=== PATIENT | female | born 1955 | race African-American/Black ===

== ENCOUNTER 2019-05-03 19:45 | Emergency (ER) | payer BC, SELFPAY ==
--- NOTE | 2019-05-03 19:59 | ED.URI ---
HPI - URI/Sore Throat General Chief Complaint: Upper Respiratory Infection Stated Complaint: cough/chest congestion/phglem Time Seen by Provider: 05/03/19 20:17 Source: patient and RN notes reviewed Mode of arrival: ambulatory Limitations: no limitations History of Present Illness HPI Narrative: 64-year-old female with history of COPD, diabetes mellitus presents with concern for shortness of breath, cough, chest discomfort. She reports she has not had to use her albuterol inhaler or her nebulizer for the symptoms. She denies fever, body aches, chills, sweats, nausea, vomiting, diarrhea. MD elicited complaint: cough Related Data Home Medications Medication Instructions Recorded Confirmed albuterol sulfate [Ventolin HFA] INHALATION 05/03/19 atorvastatin 05/03/19 linagliptin [Tradjenta] mg 05/03/19 metformin mg PO 05/03/19 olmesartan-hydrochlorothiazide tablet 05/03/19 Allergies Allergy/AdvReac Type Severity Reaction Status Date / Time No Known Allergies Allergy Unverified 06/29/15 12:55 Review of Systems Review of Systems: Narrative: CONSTITUTIONAL: Denies malaise, chills, sweats, or fever. EYES: Denies visual changes, redness, or discharge. ENT: Denies rhinorrhea, congestion, sinus pain, otalgia and sore throat. CARDIOVASCULAR: Denies chest pain, palpitations, or edema. RESPIRATORY: Reports cough, dyspnea. GASTROINTESTINAL: Denies abdominal pain, nausea, vomiting, diarrhea SKIN: Denies rash or itching. MUSCULOSKELETAL: Denies myalgia. NEUROLOGIC: Denies headache. All systems reviewed & are unremarkable except as noted in HPI and below PMFSH Comments At time of signature, agree with nursing past medical, surgical, social and family history. There is no relevant family history pertinent to the presenting complaint Exam Narrative: Exam Narrative: GENERAL: Well-appearing, well-nourished, and in no acute distress. HEAD: Normocephalic EYES: PERRLA, conjunctivae clear ENT: Nares clear, turbinates erythematous, clear discharge. Mucous membranes moist. TM pearly mike with dull light reflex bilaterally; no tragal tenderness. Oropharynx not erythematous without lesions. Tonsils not enlarged and without exudate, no drooling, no hoarseness, no trismus, uvula midline. NECK: Supple. No lymphadenopathy CHEST: Clear to auscultation, breath sounds equal. No wheezing, rhonchi, rales, or stridor. No respiratory distress, speaks in full sentences. HEART: Regular rate and rhythm. No murmur heard. SKIN: Warm, dry, no rash. NEURO: Alert and oriented x3. PSYCH: Normal mood and affect Course Course Emergency Course: Patient is aware of diagnosis, understands and agrees to treatment plan. Anticipatory guidance given. Patient agrees to follow-up as directed and is aware of reasons to seek care at the emergency department. Portions of this record may have been created with voice recognition software Vital Signs Vital signs: Vital Signs Temperature 98.6 F 05/03/19 20:02 Pulse Rate 89 05/03/19 20:02 Respiratory Rate 16 05/03/19 20:02 Blood Pressure 128/64 05/03/19 20:02 Pulse Oximetry 100 05/03/19 20:02 Temperature 98.6 F 05/03/19 20:02 Pulse Rate 89 05/03/19 20:02 Respiratory Rate 16 05/03/19 20:02 Blood Pressure 128/64 05/03/19 20:02 Pulse Oximetry 100 05/03/19 20:02 Reviewed. MDM - URI/Sore Throat MDM Narrative Medical decision making narrative: Differential diagnosis considered: Strep pharyngitis, allergic rhinitis, upper respiratory tract infection, sinusitis, rhinosinusitis, nasopharyngitis. viral pharyngitis, otitis media, otitis externa, pneumonia, bronchitis, viral cough syndrome, viral syndrome, and influenza. Exam findings show no acute concerns or changes; patient is non-toxic appearing and is in no distress. Patient is appropriate for outpatient treatment and follow-up. Critical Care Time Critical Care Time Critical Care Time: No Discharge Plan Discharge Clinical Impression
[2019-05-03 20:02] VITALS: BP 128/64; PULSE 89; RESP 16; TEMP 37; O2SAT 100
== END 2019-05-03 20:30 | disposition home or self-care (01) ==
PROVIDERS: Emergency Provider Nurse Practitioner
DX: J44.1 Chronic obstructive pulmonary disease with (acute) exacerbation (principal); E78.00 Pure hypercholesterolemia, unspecified; I10 Essential (primary) hypertension; E11.9 Type 2 diabetes mellitus without complications
CPT/HCPCS: 99213; G0463

== ENCOUNTER 2019-12-26 15:50 | Emergency (ER) | payer BC, SELFPAY ==
[2019-12-26 16:09] VITALS: BP 122/63; PULSE 90; RESP 16; TEMP 36.2; O2SAT 97
--- NOTE | 2019-12-26 16:25 | ED.URI ---
HPI - URI/Sore Throat General Chief Complaint: Upper Respiratory Infection Stated Complaint: cold sx History of Present Illness HPI Narrative: This is a 64-year-old black female who presented to urgent care complaining of a productive cough with clear sputum, sneezing, wheezing, chest congestion and rhinorrhea. Patient noted that she went outside with her hair with and as result she developed the symptoms. Patient notes that she has COPD and wants ABX before her COPD worsens. The patient denies SOB, CP, palpitation, extremity numbness, lightheadedness, dizziness, constipation, diarrhea, chills, or fever. Related Data Home Medications Medication Instructions Recorded Confirmed albuterol sulfate [Ventolin HFA] 2 inh INHALATION DIRECTED 05/03/19 12/26/19 atorvastatin 10 mg PO DAILY 05/03/19 12/26/19 linagliptin [Tradjenta] 5 mg PO DAILY 05/03/19 12/26/19 metformin 500 mg PO DIRECTED 05/03/19 12/26/19 olmesartan-hydrochlorothiazide 1 tablet PO DAILY 05/03/19 12/26/19 Allergies Allergy/AdvReac Type Severity Reaction Status Date / Time No Known Allergies Allergy Unverified 12/26/19 15:58 Review of Systems Review of Systems: All systems reviewed & are unremarkable except as noted in HPI and below (10 point system review) Exam Narrative: Exam Narrative: GENERAL: This is a well-nourished, well-developed patient, in no apparent distress. HEAD: normocephalic, atraumatic. EYES: PERRL. Sclera clear/white. Vision is grossly intact. EARS: External ears normal, auditory canals clear and without drainage, TMs normal without perforation. Hearing grossly intact. NOSE: External nose normal with no obvious nasal discharge, nares without redness, no rhinorrhea. THROAT: Mucous membranes moist, posterior pharynx clear. NECK: Neck supple, non-tender without lymphadenopathy, masses or thyromegaly. CARDIOVASCULAR: Regular rate and rhythm without murmurs, gallops, or rubs. RESPIRATORY: Diminished breath sounds GASTROINTESTINAL: Abdomen soft, non-tender, nondistended. Bowel sounds are active. No hepato-splenomegaly, or palpable masses. No guarding. SKIN: warm, intact with no suspicious lesions or rash, good texture and turgor. NEURO: awake, alert, and oriented to person, place and time. There were no obvious focal neurologic abnormalities. Steady gait EXTREMITIES: Normal range of motion. No edema. No calf tenderness. Negative Homans sign bilaterally. BACK: Nontender without deformity or crepitance. No flank tenderness. Course Course Emergency Course: Patient discharged with antibiotics and Tessalon Perles she refused the use of prednisone she knows that prednisone brings her blood sugar up Vital Signs Vital signs: Vital Signs Temperature 97.1 F L 12/26/19 16:09 Pulse Rate 90 12/26/19 16:09 Respiratory Rate 16 12/26/19 16:09 Blood Pressure 122/63 12/26/19 16:09 Pulse Oximetry 97 12/26/19 16:09 Temperature 97.1 F L 12/26/19 16:09 Pulse Rate 90 12/26/19 16:09 Respiratory Rate 16 12/26/19 16:09 Blood Pressure 122/63 12/26/19 16:09 Pulse Oximetry 97 12/26/19 16:09 MDM - URI/Sore Throat Differential Diagnosis Differential diagnosis: Likely upper respiratory infection, sinusitis and bronchitis Discharge Plan Discharge Clinical Impression: Upper respiratory infection Qualifiers: URI type: unspecified URI Qualified Code(s): J06.9 - Acute upper respiratory infection, unspecified Patient Disposition: Home, Self-Care Condition: Stable Instructions: Antibiotic Form, Upper Respiratory Infection (DC) Prescriptions: New azithromycin [Zithromax] 500 mg tablet See Rx Instructions .ROUTE .COMPLEX Qty: 3 RF: 0 benzonatate [Tessalon Perles] 100 mg capsule 100 mg PO BID PRN (Reason: cough) Qty: 30 RF: 0 No Action atorvastatin 10 mg tablet 10 mg PO DAILY RF: 0 albuterol sulfate [Ventolin HFA] 90 mcg/actuation HFA aerosol inhaler 2 inh INHALATION DIRECTED RF: 0 metformin 5
== END 2019-12-26 16:26 | disposition home or self-care (01) ==
PROVIDERS: Emergency Provider Nurse Practitioner
DX: J06.9 Acute upper respiratory infection, unspecified (principal)
CPT/HCPCS: 99213; G0463

== ENCOUNTER 2020-03-13 19:08 | Emergency (ER) | payer BC, SELFPAY ==
--- NOTE | ~2020-03-13 | XR_ITS ---
XR chest 2V DATE: 03/13/2020 19:32 INDICATION: Shortness of breath. History of COPD TECHNIQUE: 2 views COMPARISON: 06/29/2015 PA and lateral chest FINDINGS: Mild cardiomegaly. There is aortic tortuosity. There is widening of the superior mediastinu m and rightward deviation of the nasal septum. This may be due to substernal thyroid goiter but other mediastinal mass lesion is not excluded. Similar changes noted on 06/29/2015 chest radiographic exami nation, favoring chronic process such as substernal thyroid goiter. No pulmonary infiltrate or consolidation, pleural effusion or pulmonary vascular congestion or pneumo thorax. Mild degenerative change of the thoracic and lumbar spine.. IMPRESSION: Widened superior mediastinum with rightward deviation of nasal septum, chronic, present o n 06/29/2015. Most likely explanation a substernal thyroid goiter. CT thorax may be helpful for more d efinitive evaluation as clinically appropriate Reviewed, dictated and finalized at location [facility]. [facility] [employer] IMPRESSION: Widened superior mediastinum with rightward deviation of nasal sept um, chronic, present on 06/29/2015. Most likely explanation a substernal thyroid goiter. CT thorax may be helpful for more definitive evaluation as clinically appropriate
--- NOTE | 2020-03-13 19:19 | ED.URI ---
HPI - URI/Sore Throat General Chief Complaint: Upper Respiratory Infection Stated Complaint: Cough,Wheezing Time Seen by Provider: 03/13/20 19:20 Source: patient and RN notes reviewed Mode of arrival: ambulatory Limitations: no limitations History of Present Illness HPI Narrative: 64-year-old female presents to the [facility] with complaints of shortness of breath. Right lower chest when taking deep breaths has discomfort in the chest wall. Also reports when she is coughing. Has a history of COPD. States that she cannot take prednisone due to her diabetes. States her diabetes have been very well controlled. Used some albuterol and inhaler last night and states that she did feel better. Denies chest pain, abdominal pain. No fevers, nausea, vomiting, diarrhea. Related Data Home Medications Medication Instructions Recorded Confirmed albuterol sulfate [Ventolin HFA] 2 inh INHALATION DIRECTED 05/03/19 03/13/20 atorvastatin 10 mg PO DAILY 05/03/19 03/13/20 linagliptin [Tradjenta] 5 mg PO DAILY 05/03/19 03/13/20 metformin 500 mg PO DIRECTED 05/03/19 03/13/20 olmesartan-hydrochlorothiazide 1 tablet PO DAILY 05/03/19 03/13/20 Allergies Allergy/AdvReac Type Severity Reaction Status Date / Time No Known Allergies Allergy Unverified 12/26/19 15:58 Review of Systems Review of Systems: Narrative: CONSTITUTIONAL: Denies fever, chills, or sweats. EYES: Denies visual changes, redness, or discharge. ENT: Denies rhinorrhea, congestion, sore throat, or otalgia. CARDIOVASCULAR: Denies chest pain, palpitations, or edema. RESPIRATORY: Cough and chest wall pain, right lower lateral. GASTROINTESTINAL: Denies abdominal pain, nausea, vomiting, or diarrhea. GENITOURINARY: Denies dysuria or hematuria. SKIN: Denies rash or itching. MUSCULOSKELETAL: Denies back pain, joint pain, or myalgia. NEUROLOGIC: Denies headache, numbness, or weakness. PSYCHIATRIC: Denies anxiety or depression. All other systems reviewed are negative, except as documented in HPI. [facility] Past Medical History Medical History (Updated 03/14/20 @ 17:29 by Anayeli Sosa) COPD (chronic obstructive pulmonary disease) Diabetes Comments At the time of my signature, I reviewed and agree with the nursing past medical, surgical, social, and family history. There is no relevant family history pertinent to the patient complaint. Exam Narrative: Exam Narrative: GENERAL: This is a well-nourished, well-developed patient, in no apparent distress. Obese HEAD: normocephalic, atraumatic. EYES: PERRL. Sclera clear/white. Vision is grossly intact. EARS: External ears normal, auditory canals clear and without drainage, TMs normal without perforation. Hearing grossly intact. NOSE: External nose normal with no obvious nasal discharge, nares without redness, no rhinorrhea. THROAT: Mucous membranes moist, posterior pharynx clear. NECK: Neck supple, non-tender without lymphadenopathy, masses or thyromegaly. CARDIOVASCULAR: Regular rate and rhythm without murmurs, gallops, or rubs. RESPIRATORY: Clear to auscultation but mildly diminished bilateral lower lobes. No wheezes, rales, or rhonchi. Strong cough noted GASTROINTESTINAL: Abdomen soft, non-tender, nondistended. Bowel sounds are active. . SKIN: warm, intact with no suspicious lesions or rash, good texture and turgor. NEURO: awake, alert, and oriented to person, place and time. There were no obvious focal neurologic abnormalities. EXTREMITIES: No clubbing, cyanosis, or edema. No joint tenderness, effusion, or edema noted. BACK: Nontender without deformity or crepitance. No flank tenderness. Course Vital Signs Vital signs: Vital Signs Temperature 96.8 F L 03/13/20 19:22 Pulse Rate 94 03/13/20 19:22 Respiratory Rate 16 03/13/20 19:22 Blood Pressure 153/69 H 03/13/20 19:22 Pulse Oximetry 97 03/13/20 19:22 Temperature 96.8 F L 03/13/20 19:22 Pulse Rate 94 03/13/20 19:22 Respiratory Rate 16 03/13/20 19:22
[2020-03-13 19:22] VITALS: BP 153/69; PULSE 94; RESP 16; TEMP 36; O2SAT 97
[2020-03-13 19:29] LABS: Glucose Point of Care 111 (65-105)
== END 2020-03-13 20:08 | disposition home or self-care (01) ==
PROVIDERS: Emergency Provider Nurse Practitioner
DX: J20.9 Acute bronchitis, unspecified (principal); J44.9 Chronic obstructive pulmonary disease, unspecified; E11.9 Type 2 diabetes mellitus without complications
CPT/HCPCS: 71046; 82948; 99213; G0463

== ENCOUNTER 2022-01-08 15:56 | Emergency (ER) | payer BC, SELFPAY ==
[2022-01-08 16:24] VITALS: BP 107/62; PULSE 110; RESP 20; TEMP 38.1; O2SAT 98
--- NOTE | 2022-01-08 16:59 | ED.URI ---
HPI - URI/Sore Throat General Chief Complaint: Upper Respiratory Infection Stated Complaint: Vomiting,Chills,Bodyaches Source: patient and RN notes reviewed Mode of arrival: ambulatory Limitations: no limitations History of Present Illness HPI Narrative: 66-year-old female with hx DM, HTN, COPD presented for complaint of headache, body aches, cough, fever/chills. Onset 3 days. Endorses one episode of vomiting today. Decreased appetite. Denies sob,wheezing. Taking Tylenol and ibuprofen for symptoms. MD elicited complaint: cough Related Data Home Medications Medication Instructions Recorded Confirmed albuterol sulfate 90 mcg/actuation 2 inh inhalation DIRECTED 05/03/19 01/08/22 aerosol inhaler (Ventolin HFA) atorvastatin 10 mg tablet 10 mg PO DAILY 05/03/19 01/08/22 linagliptin 5 mg tablet (Tradjenta) 5 mg PO DAILY 05/03/19 01/08/22 metformin 500 mg tablet,extended 500 mg PO DIRECTED 05/03/19 01/08/22 release 24 hr olmesartan 40 1 tablet PO DAILY 05/03/19 01/08/22 mg-hydrochlorothiazide 12.5 mg tablet Allergies Allergy/AdvReac Type Severity Reaction Status Date / Time No Known Allergies Allergy Verified 01/08/22 16:36 Review of Systems Review of Systems: CONSTITUTIONAL: Endorses malaise, chills, sweats, fever EYES: Denies visual changes, redness, or discharge ENT: Denies rhinorrhea, congestion, sinus pain, otalgia, sore throat CARDIOVASCULAR: Denies chest pain, palpitations, edema RESPIRATORY: Reports cough, post nasal drainage. Denies dyspnea GASTROINTESTINAL: Denies abdominal pain, nausea, vomiting, diarrhea SKIN: Denies rash or itching MUSCULOSKELETAL: Endorses myalgia PMFSH Past Medical History Medical History COPD (chronic obstructive pulmonary disease) Diabetes Exam Narrative: GENERAL: Ill-appearing, nontoxic EYES: conjunctivae clear ENT: Mucous membranes moist. CHEST: Clear to auscultation, breath sounds equal. No wheezing, rhonchi, rales, or stridor. No respiratory distress, speaks in full sentences. HEART: Regular rate and rhythm. No murmur heard. SKIN: Warm, dry, no rash. NEURO: Alert and oriented x3. PSYCH: Normal mood and affect Course Course Emergency Course: Patient is aware of diagnosis, understands and agrees to treatment plan. Anticipatory guidance given. Patient agrees to follow-up as directed and is aware of reasons to seek care at the emergency department. Portions of this record may have been created with voice recognition software Level of Care: Express Care Visit Vital Signs Vital signs: Vital Signs Temperature 100.5 F H 01/08/22 16:24 Pulse Rate 110 H 01/08/22 16:24 Respiratory Rate 20 01/08/22 16:24 Blood Pressure 107/62 01/08/22 16:24 Pulse Oximetry 98 01/08/22 16:24 Oxygen Delivery Room Air 01/08/22 16:24 Temperature 100.5 F H 01/08/22 16:24 Pulse Rate 110 H 01/08/22 16:24 Respiratory Rate 20 01/08/22 16:24 Blood Pressure 107/62 01/08/22 16:24 Pulse Oximetry 98 01/08/22 16:24 Oxygen Delivery Room Air 01/08/22 16:24 reviewed MDM - URI/Sore Throat MDM Narrative Medical decision making narrative: Influenza positive. Results reviewed with patient. Advised supportive measures and signs/symptoms to go to the ER. Pt is appropriate for outpt treatment and f/u. Differential Diagnosis Differential diagnosis: Likely upper respiratory infection, sinusitis and viral infection Lab Data Labs: Lab Results 01/08/22 Range/Units 16:18 POC SARS CoV-2 Ag Negative (Negative) Influenza A Screen Positive Reference Range: Negative Influenza B Screen Negative Reference Range: Negative Discharge Plan Discharge Clinical Impression: Influenza Patient Disposition: Home, Self-Care Condition: Stable Instruc
== END 2022-01-08 17:11 | disposition home or self-care (01) ==
PROVIDERS: Emergency Provider Nurse Practitioner Family; PCP Physician Assistant
DX: J10.1 Influenza due to other identified influenza virus with other respiratory manifestations (principal); Z20.822 Contact with and (suspected) exposure to COVID-19; J44.9 Chronic obstructive pulmonary disease, unspecified; E11.9 Type 2 diabetes mellitus without complications; I10 Essential (primary) hypertension; Z79.84 Long term (current) use of oral hypoglycemic drugs
CPT/HCPCS: 87426; 87804; 99213; C9803; G0463

== ENCOUNTER → 2022-01-14 10:26 | Outpatient (CLI) | payer BC, SELFPAY ==
--- NOTE | ~2022-01-14 | XR_ITS ---
XR chest 2V DATE: 01/14/2022 10:45 INDICATION: Productive cough. Flu. Past smoker. TECHNIQUE: 2 views COMPARISON: 03/13/2020 2 view chest 06/29/2015 PA and lateral chest FINDINGS: There is mild discoid atelectasis or scarring at the middle lobe. The left cardiac margin i s not sharply defined, suggesting lingular infiltrate or atelectasis as well. The lungs otherwise appear clear. No pleural effusion or pulmonary vascular congestion or pneumothora x. Widened superior mediastinum with rightward shift of the trachea, likely due to thyroid goiter, prese nt on prior chest radiographs dating back to 06/29/2015. There is aortic calcification and mild tortuosity. IMPRESSION: Mild middle lobe discoid atelectasis or scarring Suggestion of mild lingular infiltrate or atelectasis Stable substernal thyroid goiter Aortic atherosclerosis Reviewed, dictated and finalized at location B. [employer]
== END ==
PROVIDERS: PCP Physician Assistant; Visit Provider Physician Assistant
DX: R05.9 Cough, unspecified (principal); J39.8 Other specified diseases of upper respiratory tract; R91.8 Other nonspecific abnormal finding of lung field; I70.0 Atherosclerosis of aorta
CPT/HCPCS: 71046

== ENCOUNTER 2022-03-19 17:59 | Emergency (ER) | payer BC, SELFPAY ==
[2022-03-19 18:17] VITALS: BP 116/73; PULSE 88; RESP 20; TEMP 36.8; O2SAT 100
--- NOTE | 2022-03-19 18:19 | ED.EXTPRO ---
HPI - Extremity Problem General Chief complaint: Extremity Problem,Nontraumatic Stated complaint: Right Arm Pain Time Seen by Provider: 03/19/22 18:19 Source: patient Mode of arrival: ambulatory Limitations: no limitations History of Present Illness HPI Narrative: 66-year-old female presented for complaint of pain to the right underarm intermittently x1 week. Pain is described as sharp shooting. Pain is brief and resolves on it's own. States it is more tender to touch when the pain is active, but she cannot reproduce the pain. Denies numbness, tingling, decreased ROM, or weakness of the arm. Denies redness, swelling, rash, or tenderness with palpation to the site. Denies associated chest pain, palpitations, shortness of breath, pain radiating down the arm, nausea, vomiting, diarrhea, fevers or chills. Has not taken anything for pain. Right hand dominant. Denies injury. Related Data Home Medications Medication Instructions Recorded Confirmed albuterol sulfate 90 mcg/actuation 2 inh inhalation DIRECTED 05/03/19 03/19/22 aerosol inhaler (Ventolin HFA) atorvastatin 10 mg tablet 10 mg PO DAILY 05/03/19 03/19/22 linagliptin 5 mg tablet (Tradjenta) 5 mg PO DAILY 05/03/19 03/19/22 metformin 500 mg tablet,extended 500 mg PO DIRECTED 05/03/19 03/19/22 release 24 hr olmesartan 40 1 tablet PO DAILY 05/03/19 03/19/22 mg-hydrochlorothiazide 12.5 mg tablet dulaglutide 1.5 mg/0.5 mL 1.5 mg subcut DIRECTED 03/19/22 03/19/22 subcutaneous pen injector (Trulicity) Allergies Allergy/AdvReac Type Severity Reaction Status Date / Time No Known Allergies Allergy Verified 03/19/22 18:01 Review of Systems Review of Systems: CONSTITUTIONAL: Denies body aches, fever, chills EYES: Denies visual changes ENT: Denies rhinorrhea, congestion CARDIOVASCULAR: Denies chest pain, palpitations, or edema. RESPIRATORY: Denies cough or dyspnea. GASTROINTESTINAL: Denies abdominal pain, nausea, vomiting, or diarrhea. SKIN: Denies rash, itching, or wounds. MUSCULOSKELETAL: per HPI NEUROLOGIC: Denies headache, numbness, tingling, or weakness. PSYCH: Denies depression or anxiety. All systems reviewed & are unremarkable except as noted in HPI and below PMFSH Past Medical History Medical History COPD (chronic obstructive pulmonary disease) Diabetes Comments At time of signature, I have reviewed and agree with nursing past medical, surgical, social and family history unless otherwise noted. Please see nursing chart for further information. There is no relevant family history pertinent to the presenting complaint Exam Narrative: GENERAL: Well-appearing CHEST: Speaks in full sentences. No respiratory distress. HEART: Regular rate and rhythm. Normal and equal peripheral pulses. EXTREMITIES: RUE has normal strength and sensation, normal range of motion at shoulder without reproducing the pain. No ecchymosis, No point tenderness. No open wounds or rash; alignment normal, pulse palpable and equal bilaterally, skin warm, dry, pink. Capillary refill less than 3 seconds. SKIN: Warm, dry, no rash. Right axilla soft, no abscess or nodules. Site is nontender. NEURO: Alert and oriented x3. PSYCH: Normal mood and affect Course Course Emergency Course: Patient is aware of diagnosis, understands and agrees to treatment plan. Anticipatory guidance given. Patient agrees to follow-up as directed and is aware of reasons to seek care at the emergency department. Portions of this record may have been created with voice recognition software Level of Care: Express Care Visit Vital Signs Vital signs: Reviewed MDM - Extremity (Nontraumatic) MDM Narrative Medical decision making narrative: Reports intermittent sharp pain to right axilla. PE negative. Advised supportive measures and signs/symptoms to go to the ER. Pt is appropriate for outpt treatment and f/u. Discharge Plan Disch
== END 2022-03-19 18:38 | disposition home or self-care (01) ==
PROVIDERS: Emergency Provider Nurse Practitioner Family; PCP Physician Assistant
DX: M79.621 Pain in right upper arm (principal); J44.9 Chronic obstructive pulmonary disease, unspecified; E11.9 Type 2 diabetes mellitus without complications
CPT/HCPCS: 99212; G0463

== ENCOUNTER 2022-10-24 19:42 | Emergency (ER) | payer BC, SELFPAY ==
[2022-10-24 19:53] VITALS: BP 147/69; PULSE 87; RESP 14; TEMP 36.6; O2SAT 97
--- NOTE | 2022-10-24 20:01 | ED.URI ---
HPI - URI/Sore Throat General Chief Complaint: Upper Respiratory Infection Stated Complaint: Cough Source: patient and RN notes reviewed Mode of arrival: ambulatory Limitations: no limitations History of Present Illness HPI Narrative: 67 y/o female with hx DM presented for c/o cough, runny nose and congestion for 4 days. States cough is moist and nonproductive. Taking Mucinex for symptoms. Took 2 negative covid tests at home. Denies known sick contacts. Denies shortness of breath, wheezing, nausea, vomiting, fevers or chills. MD elicited complaint: cough Related Data Home Medications Medication Instructions Recorded Confirmed albuterol sulfate 90 mcg/actuation 2 inh inhalation DIRECTED 05/03/19 10/24/22 aerosol inhaler (Ventolin HFA) atorvastatin 10 mg tablet 10 mg PO DAILY 05/03/19 10/24/22 linagliptin 5 mg tablet (Tradjenta) 5 mg PO DAILY 05/03/19 10/24/22 metformin 500 mg tablet,extended 500 mg PO DIRECTED 05/03/19 10/24/22 release 24 hr olmesartan 40 1 tablet PO DAILY 05/03/19 10/24/22 mg-hydrochlorothiazide 12.5 mg tablet dulaglutide 1.5 mg/0.5 mL 1.5 mg subcut DIRECTED 03/19/22 10/24/22 subcutaneous pen injector (Trulicity) Allergies Allergy/AdvReac Type Severity Reaction Status Date / Time No Known Allergies Allergy Verified 10/24/22 19:55 Review of Systems Review of Systems: CONSTITUTIONAL: denies malaise, chills, sweats, fever EYES: Denies visual changes, redness, or discharge ENT: Reports rhinorrhea, congestion, deniessinus pain, otalgia, sore throat CARDIOVASCULAR: Denies chest pain, palpitations, edema RESPIRATORY: Reports cough, post nasal drainage. Denies dyspnea GASTROINTESTINAL: Denies abdominal pain, nausea, vomiting, diarrhea SKIN: Denies rash or itching MUSCULOSKELETAL: denies myalgia NEUROLOGIC: Denies headache [facility] Past Medical History Medical History COPD (chronic obstructive pulmonary disease) Diabetes Exam Narrative: GENERAL: well-appearing, nontoxic HEAD: Normocephalic EYES: PERRLA, conjunctivae clear ENT: Mucous membranes moist. Nasal congestion. TMs pearly mike with dull light reflex and clear effusion bilaterally; no tragal tenderness. Oropharynx erythematous without lesions or exudate NECK: Supple. No lymphadenopathy CHEST: Clear to auscultation, breath sounds equal. 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 No wheezing, rhonchi, rales, or stridor. No respiratory distress, speaks in full sentences. HEART: Regular rate and rhythm. No murmur heard. SKIN: Warm, dry, no rash. NEURO: Alert and oriented x3. PSYCH: Normal mood and affect Course Course Emergency Course: Patient is aware of diagnosis, understands and agrees to treatment plan. Anticipatory guidance given. Patient agrees to follow-up as directed and is aware of reasons to seek care at the emergency department. Portions of this record may have been created with voice recognition software Level of Care: Express Care Visit Vital Signs Vital signs: Vital Signs Temperature 98 F 10/24/22 19:53 Pulse Rate 87 10/24/22 19:53 Respiratory Rate 14 10/24/22 19:53 Blood Pressure 147/69 H 10/24/22 19:53 Pulse Oximetry 97 10/24/22 19:53 Oxygen Delivery Room Air 10/24/22 19:53 Temperature 98 F 10/24/22 19:53 Pulse Rate 87 10/24/22 19:53 Respiratory Rate 14 10/24/22 19:53 Blood Pressure 147/69 H 10/24/22 19:53 Pulse Oximetry 97 10/24/22 19:53 Oxygen Delivery Room Air 10/24/22 19:53 reviewed MDM - URI/Sore Throat MDM Narrative Medical decision making narrative: Discussed physical exam findings and covid test. Cannot tolerate steroids due to raising BS. Advised supportive measures and signs/symptoms to go to the ER. Pt is appropriate for outpt treatment and f/u. Differential Diagnosis Differential diagnosis: Likely upper respiratory infection, sinusitis, viral infection and bronchitis Discharge Plan Di
== END 2022-10-24 20:15 | disposition home or self-care (01) ==
PROVIDERS: Emergency Provider Nurse Practitioner Family; PCP Physician Assistant
DX: J06.9 Acute upper respiratory infection, unspecified (principal); Z20.822 Contact with and (suspected) exposure to COVID-19; J44.9 Chronic obstructive pulmonary disease, unspecified; E11.9 Type 2 diabetes mellitus without complications; Z79.84 Long term (current) use of oral hypoglycemic drugs
CPT/HCPCS: 87426; 99213; C9803; G0463

== ENCOUNTER 2023-01-28 19:26 | Emergency (ER) | payer BC, SELFPAY ==
[2023-01-28 19:40] VITALS: BP 133/77; PULSE 85; RESP 16; TEMP 37.3; O2SAT 98
--- NOTE | 2023-01-28 20:00 | ED.URI ---
HPI - URI/Sore Throat General Chief Complaint: Upper Respiratory Infection Stated Complaint: cough,chest hurts,sinus drainage Time Seen by Provider: 01/28/23 20:00 Source: patient and RN notes reviewed Mode of arrival: ambulatory Limitations: no limitations History of Present Illness HPI Narrative: 67-year-old female presents concern for cough, nasal drainage for 1 week. Reports her shortness of breath from her COPD has been getting worse. She reports general malaise. MD elicited complaint: cough and sore throat Related Data Home Medications Medication Instructions Recorded Confirmed albuterol sulfate 90 mcg/actuation 2 inh inhalation DIRECTED 05/03/19 01/28/23 aerosol inhaler (Ventolin HFA) atorvastatin 10 mg tablet 10 mg PO DAILY 05/03/19 01/28/23 linagliptin 5 mg tablet (Tradjenta) 5 mg PO DAILY 05/03/19 01/28/23 metformin 500 mg tablet,extended 500 mg PO DIRECTED 05/03/19 01/28/23 release 24 hr olmesartan 40 1 tablet PO DAILY 05/03/19 01/28/23 mg-hydrochlorothiazide 12.5 mg tablet dulaglutide 1.5 mg/0.5 mL 1.5 mg subcut DIRECTED 03/19/22 01/28/23 subcutaneous pen injector (Trulicity) Allergies Allergy/AdvReac Type Severity Reaction Status Date / Time No Known Allergies Allergy Verified 01/28/23 19:47 Review of Systems Review of Systems: CONSTITUTIONAL: Reports malaise, chills, sweats. Denies fever. EYES: Denies visual changes, redness, or discharge. ENT: Reports rhinorrhea, congestion CARDIOVASCULAR: Denies chest pain, palpitations, or edema. RESPIRATORY: Reports productive cough, exertion dyspnea. GASTROINTESTINAL: Denies abdominal pain, nausea, vomiting, diarrhea SKIN: Denies rash or itching. MUSCULOSKELETAL: Denies myalgia. NEUROLOGIC: Denies headache. All systems reviewed & are unremarkable except as noted in HPI and below PMFSH Past Medical History Medical History COPD (chronic obstructive pulmonary disease) Diabetes Comments At time of signature, agree with nursing past medical, surgical, social and family history. There is no relevant family history pertinent to the presenting complaint Exam Narrative: GENERAL: Well-appearing, well-nourished, and in no acute distress. HEAD: Normocephalic EYES: PERRLA, conjunctivae clear ENT: Nares clear. Mucous membranes moist. TM pearly mike with sharp light reflex bilaterally; no tragal tenderness. Oropharynx not erythematous without lesions. Tonsils not enlarged and without exudate, no drooling, no hoarseness, no trismus, uvula midline. NECK: Supple. No lymphadenopathy CHEST: Scattered rhonchi, otherwise clear to auscultation, breath sounds equal. No wheezing, rales, or stridor. No respiratory distress, speaks in full sentences. HEART: Regular rate and rhythm. No murmur heard. SKIN: Warm, dry, no rash. NEURO: Alert and oriented x3. PSYCH: Normal mood and affect Course Course Emergency Course: Patient is aware of diagnosis, understands and agrees to treatment plan. Anticipatory guidance given. Patient agrees to follow-up as directed and is aware of reasons to seek care at the emergency department. Portions of this record may have been created with voice recognition software Level of Care: Express Care Visit Vital Signs Vital signs: Vital Signs Temperature 99.1 F 01/28/23 19:40 Pulse Rate 85 01/28/23 19:40 Respiratory Rate 16 01/28/23 19:40 Blood Pressure 133/77 01/28/23 19:40 Pulse Oximetry 98 01/28/23 19:40 Oxygen Delivery Room Air 01/28/23 19:40 Temperature 99.1 F 01/28/23 19:40 Pulse Rate 85 01/28/23 19:40 Respiratory Rate 16 01/28/23 19:40 Blood Pressure 133/77 01/28/23 19:40 Pulse Oximetry 98 01/28/23 19:40 Oxygen Delivery Room Air 01/28/23 19:40 Reviewed. MDM - URI/Sore Throat MDM Narrative Medical decision making narrative: Differential diagnosis considered: [place] virus, strep pharyngitis, allerg
== END 2023-01-28 20:07 | disposition home or self-care (01) ==
PROVIDERS: Emergency Provider Nurse Practitioner; PCP Physician Assistant
DX: J06.9 Acute upper respiratory infection, unspecified (principal); J44.9 Chronic obstructive pulmonary disease, unspecified; E11.9 Type 2 diabetes mellitus without complications
CPT/HCPCS: 99213; G0463

== ENCOUNTER 2024-05-01 18:31 | Emergency (ER) | payer BC, SELFPAY ==
[2024-05-01 18:32] VITALS: BP 135/74; PULSE 78; RESP 16; TEMP 36.6; O2SAT 100
--- OUTSIDE RECORDS SUMMARY | 2024-05-01 18:34 | XMS_ITS | Clinical Summary ---
Author Organization [facility] [place] [address] [facility] Address [address] [place] [address] Care Team Providers Care Construction Person Name Role Phone Terri Lopez Primary Care Provider [phone] Gary Deepali Page DO Unavailable [phone] Allergies Active Allergy Reactions Criticality Noted Date Comments Dvxadbdkdv-Bapwxsxm-Zv rmoterol Headache Low 06/07/2023 Prednisone Other (See comments) Low 01/13/2022 Hyperglycemia: ended up in hospital last time it was taken Medications blood glucose diagnostic strip Active lancing device/lancets ([employer] DELICA LANC DEVICE MISC) Active blood-glucose meter [facility] Active dulaglutide (TRULICITY) 0.75 mg/0.5 mL pen injectorIndica tions:type 2 diabetes mellitus Inject 0.5 mL (0.75 mg total) under the skin every 7 days Active acetaminophen (TYLENOL) 500 mg tablet Take 2 tablets (1,000 mg total) by mouth every 6 (six) hours as needed for pain Active ibuprofen 200 mg tab/cap Take 3 tablet/capsule (600 mg total) by mouth every 6 (six) hours as needed for pain Active metFORMIN XR (GLUCOPHAGE XR) 500 mg 24 hr tablet Take 2 tablets (1,000 mg total) by mouth daily with breakfast 180 tablet 1 3 Active albuterol 0.63 mg/3 mL nebulizer solution USE 1 VIAL VIA NEBULIZER EVERY 6 HOURS NEEDED FOR WHEEZING 75 mL 1 3 Active inhalational spacing device (Aerochamber MV) spacer Use to assist with adminstration of Breztri -- Please make sure the spacer is compatable with the Breztri device. 1 each 3 Active albuterol HFA (PROVENTIL HFA,VENTOLIN HFA,PROAIR HFA) 90 mcg/actuation inhaler USE 2 INHALATIONS EVERY 4 HOURS NEEDED FOR WHEEZING 25.5 g 3 4 Active omeprazole (PriLOSEC) 20 mg capsule Take 1 capsule (20 mg total) by mouth daily 30 capsule 4 Active cetirizine (ZyrTEC) 10 mg tablet Take 1 tablet (10 mg total) by mouth daily 30 tablet 11 4 01/04/20 25 Active olmesartan-hyd rochlorothiazi de (BENICAR HCT) 40-12.5 mg per tablet Take 1 tablet by mouth daily 90 tablet 2 5 Active atorvastatin (LIPITOR) 10 mg tablet Take 1 tablet (10 mg total) by mouth daily 90 tablet 2 5 Active fluticasone propionate (FLONASE) 50 mcg/actuation nasal spray Administer 1 spray into each nostril daily 3 each 2 5 Active Active Problems Problem Noted Date Diagnosed Date Annual physical exam 03/17/2024 Assessment & Plan (03/17/2024 7:[address] CAR INSPECTOR): Encouraged healthy lifestyle, good nutrition and exercise. Encouraged Calcium and Vitamin D and weight bearing exercise for bone health. Reviewed immunizations Reviewed age appropirate screenings. Status post complete thyroidectomy 09/18/2023 Overview (09/18/2023): 08/2023 -- Multinodular goiter removed at [facility] Dr. Lemus Started levothyroxine 88mcg PTH >4 post op Assessment & Plan (09/18/2023 12:49 PM CDT): 08/2023 -- Multinodular goiter removed at [facility] Dr. Lemus Started levothyroxine 88mcg PTH >4 post op Endo is monitoring her thyroid Multiple pulmonary nodules 06/15/2023 History of tobacco abuse 03/20/2023 Assessment & Plan (03/20/2023 9:[address] CAR INSPECTOR): Discussed with patient Lung Cancer screening options with the patient. Encouraged LowDose CT Patient is between 55 - 77 yo. Is a current smoker or quit in the last 15 years. Has a 30+pack years smoking history. Is currently without any signs or symptoms of lung cancer. Is willing to consider curative lung surgery if needed. Morbid obesity 11/16/2022 Assessment & Plan (03/08/2024 8:[address] CAR INSPECTOR): Discussed the patient's BMI. The BMI is above average. BMI management plan is completed. BMI Follow-up includes: nutrition counseling, exercise counseling and education provided. Assessment & Plan (09/18/2023 12:49 PM CDT): Discussed the patient's BMI. The BMI is above average. BMI management plan is completed. BMI Follow-up includes: nutrition counseling, exercise counseling and education provided. Assessment & Plan (03/20/2023 8:[address] CAR INSPECTOR): Discussed the patient's BMI. The BMI is above average. BMI management plan is completed. BMI Follow-up includes: nutrition counseling, exercise counseling and education provided. Assessment & Plan (11/16/2022 8:37 AM CDT): Discussed the patient's BMI. The BMI is above average. BMI management plan is completed. BMI Follow-up includes: nutrition counseling, exercise counseling and education provided. BMI 40.0-44.9, adult 11/16/2022 Assessment & Plan (03/08/2024 8:[address] CAR INSPECTOR): Discussed the patient's BMI. The BMI is above average. BMI management plan is completed. BMI Follow-up includes: nutrition counseling, exercise counseling and education provided. Assessment & Plan (09/18/2023 12:49 PM CDT): Discussed the patient's BMI. The BMI is above average. BMI management plan is completed. BMI Follow-up includes: nutrition counseling, exercise counseling and education provided. Assessment & Plan (03/20/2023 8:[address] CAR INSPECTOR): Discussed the patient's BMI. The BMI is above average. BMI management plan is completed. BMI Follow-up includes: nutrition counseling, exercise counseling and education provided. Assessment & Plan (11/16/2022 8:37 AM CDT): Discussed the patient's BMI. The BMI is above average. BMI management plan is completed. BMI Follow-up includes: nutrition counseling, exercise counseling and education provided. Bilateral hand pain 08/01/2022 Assessment & Plan (08/01/2022 1:10 PM CDT): Patient presents with bilateral hand pain. The right hand is more in the palm the left hand is a tingling and numbness that comes and goes. Her story is not super consistent and it definitely isn't a consistent distribution. She does admit seems to happen mostly at night. Encouraged cock-up splints bilaterally and monitor closely. If she has increased her persistent symptoms she is to follow-up for further evaluation History of 2019 novel coronavirus disease (COVID -19) 04/16/2021 Overview (04/16/2021): 02/2021 Acute pain of right knee 10/25/2020 Assessment & Plan (10/25/2020 10:42 AM CDT): Check xrays. Suspect arthritis. Nsaids otc prn May consider Ortho referral as not interested in PT. Vitamin D deficiency 10/14/2020 Assessment & Plan (03/17/2024 7:[address] CAR INSPECTOR): Supplement Assessment & Plan (09/18/2023 12:49 PM CDT): Supplement Assessment & Plan (03/20/2023 9:[address] CAR INSPECTOR): Supplement Assessment & Plan (11/16/2022 7:19 PM CDT): Supplement vitamin-D Assessment & Plan (08/17/2021 8:58 AM CDT): Supplement ARLYN (obstructive sleep apnea) 08/15/2020 Assessment & Plan (03/17/2024 7:[address] CAR INSPECTOR): Patient refuses to use the CPAP. Reviewed risk of untreated and undertreated ARLYN and encouraged to use. She states she elevates the head of the bed thinks it does help. Offered referral to Dr. Coker's office but she declined due to cost of medical care at this point. Advised that is always available for referral Assessment & Plan (09/18/2023 12:49 PM CDT): Not using CPA She did raise the head of her bed. Reviewed with her the long-term sequelae of untreated or undertreated ARLYN. May call at any time for assistance Assessment & Plan (03/20/2023 9:[address] CAR INSPECTOR): Patient has known ARLYN. Has CPAP but is choosing not to use as she feels like she is suffocating or being smothered with it. Stressed importance of following up with pulmonology to discuss her COPD to see if we can get her breathing better so she can get on the CPAP to avoid long-term sequela that can occur for untreated or undertreated ARLYN. Assessment & Plan (11/16/2022 7:19 PM CDT): Using CPAP faithfully. Continue. Assessment & Plan (08/17/2021 8:57 AM CDT): Discussed at length importance of using her CPAP with her diagnosis of sleep apnea. Reviewed the risks of undertreated CPAP the long-term effects. Encouraged her to get in with Dr. Cannon for follow-up as it is been 2019 since she was last seen Assessment & Plan (08/15/2020 8:46 PM CDT): Stressed importance of using her CPAP every night to avoid fpc sequela. Encouraged to keep followup with sleep COPD (chronic obstructive pulmonary disease) 02/2020 Assessment & Plan (03/17/2024 7:[address] CAR INSPECTOR): Continue per Dr. Castro. Currently on albuterol p.r.n.. Did not tolerate the Breztri Has follow-up with him to discuss further options. Will await his recommendations Assessment & Plan (09/18/2023 12:23 PM CDT): Encouraged to follow up with Dr. Castro. She is breathing better with the removal of the compressive mass over her thyroid but she has been a long-time smoker and so has COPD. Did not tolerate the breasts tree. Currently only using albuterol. Would benefit from further evaluation Assessment & Plan (03/20/2023 9:[address] CAR INSPECTOR): Patient has COPD. She has been resistant to medication. Trialed breasts treat with albuterol and she states it irritates her throat so she is unable to tolerate it. She has a chronic cough with lots of sputum production. Has had multiple exacerbations of her COPD in the last year. Strongly encouraged referral to Pulmonary and she is willing to accept that today. I have been encouraging imaging with low-dose CT and she is willing to accept this order also. Assessment & Plan (08/01/2022 1:10 PM CDT): Continue inhalers Assessment & Plan (08/17/2021 8:53 AM CDT): Continue Albuterol prn. Assessment & Plan (10/25/2020 10:39 AM CDT): Encouraged cessation. Continue albuterol prn. She isn't interested in further treatment. Assessment & Plan (08/15/2020 8:45 PM CDT): Start 40+ year 1ppd. Quit 2016 Pt declines wanting additional inhaler. Using albuterol prn Type 2 diabetes mellitus with hyperlipidemia 02/2020 Assessment & Plan (03/17/2024 7:[address] CAR INSPECTOR): Stressed importance of continued A1c control to minimize the intermediate accountant effects of diabetes. Bring accuchecks to office when instructed to do so. Check A1c about every 3-6 months. Take medication as prescribed. Get annual eye exam. Encouraged KASSIE/Statin if able to tolerate. Encouraged weight control and encouraged diabetic diet and exercise. Encouraged patient to follow low fat/low chol diet like the Mediterranean diet. Increase good fats in the diet. Increase exercise. Monitor labs as needed. Managed by endocrinology at [facility]. Assessment & Plan (09/18/2023 12:48 PM CDT): Stressed importance of continued A1c control to minimize the intermediate accountant effects of diabetes. Bring accuchecks to office when instructed to do so. Check A1c about every 3-6 months. Take medication as prescribed. Get annual eye exam. Encouraged KASSIE/Statin if able to tolerate. Encouraged weight control and encouraged diabetic diet and exercise. Encouraged patient to follow low fat/low chol diet like the Mediterranean diet. Increase good fats in the diet. Increase exercise. Monitor labs as needed. Continue atorvastatin 10. Continue Trulicity 1.5 mg and metformin XR 1 g daily. Diabetes is managed by [facility] endocrinology Assessment & Plan (03/20/2023 9:[address] CAR INSPECTOR): Stressed importance of continued A1c control to minimize the intermediate accountant effects of diabetes. Bring accuchecks to office when instructed to do so. Check A1c about every 3-6 months. Take medication as prescribed. Get annual eye exam. Encouraged KASSIE/Statin if able to tolerate. Encouraged weight control and encouraged diabetic diet and exercise. Encouraged patient to follow low fat/low chol diet like the Mediterranean diet. Increase good fats in the diet. Increase exercise. Monitor labs as needed. Continue diabetes management per Endocrinology at [facility]. Continue atorvastatin 10 mg Assessment & Plan (11/16/2022 7:18 PM CDT): Encouraged patient to follow low fat/low chol diet like the Mediterranean diet. Increase good fats in the diet. Increase exercise. Monitor labs as needed. Continue statin Assessment & Plan (08/01/2022 1:10 PM CDT): Encouraged patient to follow low fat/low chol diet like the Mediterranean diet. Increase good fats in the diet. Increase exercise. Monitor labs as needed. Continue statin Stressed importance of continued A1c control to minimize the fpc effects of diabetes. Bring accuchecks to office when instructed to do so. Check A1c about every 3-6 months. Take medication as prescribed. Get annual eye exam. Encouraged KASSIE/Statin if able to tolerate. Encouraged weight control and encouraged diabetic diet and exercise. Continue per Endo at [facility]. Assessment & Plan (08/17/2021 8:54 AM CDT): Encouraged patient to follow low fat/low chol diet like the Mediterranean diet. Increase good fats in the diet. Increase exercise. Monitor labs as needed. Continue statin Stressed importance of continued A1c control to minimize the fpc effects of diabetes. Bring accuchecks to office when instructed to do so. Check A1c about every 3-6 months. Take medication as prescribed. Get annual eye exam. Encouraged KASSIE/Statin if able to tolerate. Encouraged weight control and encouraged diabetic diet and exercise. Continue per Endo at [facility]. Assessment & Plan (05/07/2021 9:30 PM CDT): Encouraged patient to follow low fat/low chol diet like the Mediterranean diet. Increase good fats in the diet. Increase exercise. Monitor labs as needed. Continue statin Assessment & Plan (10/25/2020 10:38 AM CDT): Stressed importance of continued A1c control to minimize the fpc effects of diabetes. Bring accuchecks to office when instructed to do so. Check A1c about every 3-6 months. Take medication as prescribed. Get annual eye exam. Encouraged KASSIE/Statin if able to tolerate. Encouraged weight control and encouraged diabetic diet and exercise. Continue statin. Continue metformin and Januvia - as A1c at 6.9 so at goal. Discussed GLP or SGLT for cardiac protection. Not interested at this point. Assessment & Plan (08/15/2020 8:39 PM CDT): Encouraged patient to follow fat/low chol diet like the Mediterranean diet. Increase good fats in the diet. Increase exercise. Monitor labs as needed. Continue statin Hypertension associated with diabetes 08/13/2020 Assessment & Plan (03/17/2024 7:[address] CAR INSPECTOR): Bp is stable/in acceptable range for any co-morbidities. Encouraged to limit sodium intake and exercise for weight control. Continue olmesartan and hydrochlorothiazide Assessment & Plan (09/18/2023 12:23 PM CDT): Bp is stable/in acceptable range for any co-morbidities. Encouraged to limit sodium intake and exercise for weight control. Continue olmesartan hydrochlorothiazide Assessment & Plan (03/20/2023 9:[address] CAR INSPECTOR): Bp is stable/in acceptable range for any co-morbidities. Encouraged to limit sodium intake and exercise for weight control. Continue olmesartan hydrochlorothiazide Assessment & Plan (11/16/2022 7:19 PM CDT): Bp is stable/in acceptable range for any co-morbidities. Encouraged to limit sodium intake and exercise for weight control. Continue olmesartan hydrochlorothiazide. Stressed importance of continued A1c control to minimize the intermediate accountant effects of diabetes. Bring accuchecks to office when instructed to do so. Check A1c about every 3-6 months. Take medication as prescribed. Get annual eye exam. Encouraged KASSIE/Statin if able to tolerate. Encouraged weight control and encouraged diabetic diet and exercise. Follows with Dr. Vega Endocrinology. Last A1c was 6.2. She is on Trulicity 0.75 metformin XR 1 g daily. Assessment & Plan (08/01/2022 1:11 PM CDT): Bp is stable/in acceptable range for any co-morbidities. Encouraged to limit sodium intake and exercise for weight control. Continue olmesartan hydrochlorothiazide Assessment & Plan (08/17/2021 8:57 AM CDT): Bp is stable/in acceptable range for any co-morbidities. Encouraged to limit sodium intake and exercise for weight control. Assessment & Plan (05/07/2021 9:31 PM CDT): Encouraged patient to follow low fat/low chol diet like the Mediterranean diet. Increase good fats in the diet. Increase exercise. Monitor labs as needed. Continue olmesartan/HCTZ Assessment & Plan (10/25/2020 10:36 AM CDT): Bp is stable/in acceptable range for any co-morbidities. Encouraged to limit sodium intake and exercise for weight control. Continue olmesartan/HCTZ Assessment & Plan (08/15/2020 8:39 PM CDT): Bp is stable/in acceptable range for any co-morbidities. Encouraged to limit sodium intake and exercise for weight control. Continue olmesartan/HCTZ Allergies 08/13/2020 Resolved Problems Problem Noted Date Diagnosed Date Resolved Date Menopause 03/20/2023 03/17/2024 Assessment & Plan (03/20/2023 9:[address] CAR INSPECTOR): Encouraged bone density to evaluate for osteoporosis Breast cancer screening by mammogram 03/20/2023 03/17/2024 Assessment & Plan (03/20/2023 9:[address] CAR INSPECTOR): Mammogram order provided she will be due in December COPD exacerbation 11/16/2022 03/20/2023 Assessment & Plan (11/16/2022 7:21 PM CDT): This is a significant, separately identifiable problem that was evaluated and managed on the same day as the wellness exam Patient was sick a few weeks ago and was seen in urgent care. Given Augmentin. States she is had improvement in the rhinorrhea is not clear but she is still coughing and feeling very tight in the chest like she can not get a full breath. Has known COPD so suspect this is a COPD exacerbation. She is only been using albuterol 1 to 2 times a week and has refused starting a daily inhaler. Discussed COPD at length and that being on inhaler is going to allow her to have more air as well as try to help prevent continued COPD exacerbations. Reviewed risks benefits alternatives side effects and proper use. Offered referral to pulmonology but she declines. She is willing to consider Breztri. Concerned about the cost. Provided coupon as well as a sample and will see how she does. BMI 40.0-44.9, adult 08/01/2022 023 Otorrhea of right ear 08/01/20222023 Assessment & Plan (08/01/2022 1:07 PM CDT): Patient follows with Dr. Coronado at [facility]. There is concern for possible CSF leak. Discussion of possible surgery in the near future. Reviewed with patient signs and symptoms of meningitis or other infection. If this would occur she would need immediate follow-up. Annual physical exam 08/16/2021 024 Assessment & Plan (11/16/2022 7:19 PM CDT): Encouraged healthy lifestyle, good nutrition and exercise. Encouraged Calcium and Vitamin D and weight bearing exercise for bone health. Reviewed immunizations Reviewed age appropirate screenings. Assessment & Plan (08/17/2021 8:58 AM CDT): Encouraged healthy lifestyle, good nutrition and exercise. Encouraged Calcium and Vitamin D and weight bearing exercise for bone health. Reviewed immunizations Reviewed age appropirate screenings. BMI 40.0-44.9, adult 04/16/2021 022 Assessment & Plan (04/16/2021 9:[address] CAR INSPECTOR): Obesity is unchanged. Discussed the patient's BMI. The BMI is above average. BMI management plan is completed. BMI Follow-up includes: nutrition counseling, exercise counseling and education provided. Morbid obesity with BMI of 40.0-44.9, adult 04/16/2021 11/16/2022 Assessment & Plan (08/01/2022 1:04 PM CDT): Discussed the patient's BMI. The BMI is above average. BMI management plan is completed. BMI Follow-up includes: nutrition counseling, exercise counseling and education provided. Patient has an obesity-related condition (not limited to: hypertension, obstructive sleep apnea, osteoarthritis, hyperlipidemia, diabetes, etc.). Therefore, morbid obesity may be documented for patients with a BMI between 35.00-39.99. Assessment & Plan (08/17/2021 8:58 AM CDT): Discussed the patient's BMI. The BMI is above average. BMI management plan is completed. BMI Follow-up includes: nutrition counseling, exercise counseling and education provided. Assessment & Plan (04/16/2021 9:[address] CAR INSPECTOR): Obesity is unchanged. Discussed the patient's BMI. The BMI is above average. BMI management plan is completed. BMI Follow-up includes: nutrition counseling, exercise counseling and education provided. Congestion of upper airway 11/07/2020 0 08/16/2021 Assessment & Plan (11/07/2020 2:34 PM CDT): Will check for COVID due to the pandemic. She has been vaccinated. Encouraged mask use until results are available. Encouraged supportive care. Push fluids. Rest. Reviewed that most viral conditions may have sxs that last for 10-14 days. If sxs worsen or don\'t fully resolve, pt is to followup in the office. BMI 40.0-44.9, adult 10/14/2020 021 Assessment & Plan (10/14/2020 8:52 AM CDT): Obesity is unchanged. Discussed the patient's BMI. The BMI is above average. BMI management plan is completed. BMI Follow-up includes: nutrition counseling, exercise counseling and education provided. Morbid obesity with BMI of 40.0-44.9, adult 10/14/2020 04/16/2021 Assessment & Plan (10/14/2020 8:52 AM CDT): Obesity is unchanged. Discussed the patient's BMI. The BMI is above average. BMI management plan is completed. BMI Follow-up includes: nutrition counseling, exercise counseling and education provided. Annual physical exam 08/15/2020 021 Colon cancer screening 08/15/202008/17 Assessment & Plan (05/07/2021 9:30 PM CDT): Scheduled for 05/03 Assessment & Plan (08/15/2020 8:43 PM CDT): Refer for colonoscopy Hyperglycemia 08/15/2020 08/15/2020 Lipid screening 08/15/2020 08/15/2020 Fatigue 08/15/2020 03/17/2024 Assessment & Plan (03/20/2023 9:[address] CAR INSPECTOR): Probably multifactorial. Check labs and followup to re-evaluate Patient currently denies any active chest pain. I suspect some of her fatigue is secondary to her breathing difficulties she does become short of breath with almost any minimal activity. Her resting O2 sats is in the mid 90s. Will check labs but still strongly encouraged follow-up with Pulmonary to address her COPD. If she would have any type of chest pain or pressure she is to go to the ER immediately Assessment & Plan (08/17/2021 8:57 AM CDT): Probably multifactorial. Check labs and followup to re-evaluate Assessment & Plan (08/15/2020 8:46 PM CDT): Probably multifactorial. Check labs and followup to re-evaluate Breast cancer screening by mammogram 08/15/2020 05/07/2021 Assessment & Plan (08/15/2020 8:43 PM CDT): Mammogram order provided Status post partial thyroidectomy 08/15/2020 09/18/2023 Overview (08/15/2020): 2019 Dr[facility] Acosta at [facility] -- nodules Assessment & Plan (08/15/2020 8:43 PM CDT): Dr. Acosta manages thyroid levels BMI 40.0-44.9, adult 08/13/2020 021 Assessment & Plan (08/13/2020 10:51 AM CDT): Obesity is unchanged. Discussed the patient's BMI. The BMI is above average. BMI management plan is completed. BMI Follow-up includes: nutrition counseling, exercise counseling and education provided. Morbid obesity with BMI of 4 0.0-44.9, adult ([facility] 08/13/2020 10/14/2020 Assessment & Plan (08/13/2020 10:52 AM CDT): Obesity is unchanged. Discussed the patient's BMI. The BMI is above average. BMI management plan is completed. BMI Follow-up includes: nutrition counseling, exercise counseling and education provided. History of 2019 novel sam virus disease (COVID-19) 08/13/2020 04/16/2021 Encounters Date Type Department Care Team Description 03/18/2024 Orders Only [address] [place] [address] Provider, MD Lee 03/08/2024 8:[address] CAR INSPECTOR Office Visit [address] [place] [address] Terri Lopez PA Annual physical exam (Primary Dx); Vitamin D deficiency; ARLYN (obstructive sleep apnea); Hypertension associated with diabetes (HCC); Type 2 diabetes mellitus with hyperlipidemia (HCC); Chronic obstructive pulmonary disease, unspecified COPD type (HCC); BMI 40.0-44.9, adult (HCC); Morbid obesity (HCC) from Last 3 Months Immunizations Immunization Administration Dates Next Due Influenza, Unspecified 02/14/2024(Deferr ed: Patient Refused),03/16/2022(Deferred: Patient Refused),03/16/2021(Deferred: Patient Refused),02/13/2021(Deferred: Patient Refused) Surgical History Surgery Date Site/Laterality Comments THYROID SURGERY TUBAL LIGATION DENTAL SURGERY Medical History Medical History Date Comments Diabetes mellitus (HCC) Hyperlipidemia Hypertension COPD (chronic obstructive pulmonary disease) (HC C) Type 2 diabetes mellitus (HCC) Family History Medical History Relation Name Comments No Known Problems Father Diabetes Mother Hypertension Mother Relation Name Status Comments Father Mother Alive Social History Tobacco Use Types Packs/Day Years Used Date Smoking Tobacco: Former Cigarettes 1 40 0 08/14/1975 - 08/14/2015 Smokeless Tobacco: Never Tobacco Cessation:Counseling Given: Not Answered Comments:Per lung screen history form done 10/26/23 AUDIT-C Answer Date Recorded Q1: How often do you have a drink containing alc ohol? Never 03/08/2024 Average Number of Drinks Not on file 025 Frequency of Binge Drinking Not on file 02/14 PHQ-2 Answer Date Recorded PHQ-2 Total Score (If total score is 3 or more points, staff should administer the PHQ-9) 0 03/08/2024 Comments No Sex and Gender Information Value Date Recorded Sex Assigned at Not on file Legal Sex Female 6:[address] INSPECTOR Gender Identity Female 11/09/2020 12:04 PM CDT Sexual Orientation Straight 11/09/2020 12 :04 PM CDT Obstetrics History Para Term AB IAB SAB Ectopic Multiple Livin g Live Births 6 5 5 Date Outcome GA Total Labor Labor/2nd/3rd Weight Sex Type Anes PTL Kelsy A1 A5 Name Clin Term Term Term Term Term Last Filed Vital Signs Vital Sign Reading Time Taken Comments Blood Pressure 126/74 03/08/2024 8:[address] CAR INSPECTOR Pulse 75 03/08/2024 8:[address] CAR INSPECTOR Temperature 36.7 C (98.1 F) 03/08/2024 8:[address] CAR INSPECTOR Respiratory Rate 18 01/04/2024 8:[address] CAR INSPECTOR Oxygen Saturation 96% 03/08/2024 8:[address] CAR INSPECTOR Inhaled Oxygen Concentration - - Weight 110.2 kg (243 lb) 03/08/2024 8:[address] CAR INSPECTOR Height 162.6 cm (5' 4 ) 03/08/2024 8:[address] CAR INSPECTOR Body Mass Index 41.71 03/08/2024 8:[address] CAR INSPECTOR Plan of Treatment Health Maintenance Due Date Last Done Comments Albumin Creatinine Ratio, Urine 1955 Hepatitis C Screening 1955 Foot Exam 1955 DTaP/Tdap/Td Vaccine (1 - Tdap) 04/27/1966 Hepatitis B Screening 04/27/1973 Pneumococcal vaccine 65+ (1 of 2 - PCV) 04/27/1974 Zoster Vaccine (1 of 2) 04/27/2005 eGFR 10/11/2022 10/11/2021, 10/02/2020 Hemoglobin A1C 01/30/2024 07/31/2023, 07/14, 10/11/2021, Additional history exists Influenza Vaccine (#1) 2024 Postp oned from 10/15/2023 (Patient declined, but will receive in the future) Lung Cancer Screening 10/26/2024 10/26/2023, 024 Breast Cancer Screening-Mammogram 12/19/2024 12/20/2023, 12/14/2022, 06/10/2022, Additional history exists Lipid Panel 01/15/2025 01/16/2024, 06/2023, 04/18/2023, Additional history exists Depression Screening 03/08/2025 03/08/2024, 09/18/2023, 03/20/2023, Additional history exists Fall Risk Assessment 03/08/2025 03/08/2024, 11/16/2022, 05/03/2021, Additional history exists Well Visit 65+ 03/08/2025 03/08/2024, 05/2022, 08/17/2021 Dilated Eye Exam 03/18/2025 03/18/2024, 05/26/2022 Osteoporosis Screening-Bone Density Scan 04/23/2025 04/24/2023 Colon Cancer Screening-Colonoscopy 05/04/2031 05/03/2021 Procedures Procedure Name Priority Date/Time Associated Diagnosis Comments DIABETES EYE EXAM Routine 03/18/2024 8:[address] CAR INSPECTOR SCREENING MAMMOGRAM BILATERAL W LONNIE Schedule Routine, Read Routine (OP Routine) 12/20/2023 9:[address] CAR INSPECTOR Breast cancer screening by mammogram CT CHEST WO CONTRAST F/U LUNG SCREEN PROTOCOL Schedule Routine, Read Routine (OP Routine) 10/26/2023 8:52 AM CDT Pulmonary nodules HEMOGLOBIN A1C Routine 07/31/2023 12:44 PM CDT DEXA AXIAL SKELETON BONE DENSITY 1 OR MORE SITES Schedule Routine, Read Routine (OP Routine) 04/24/2023 8:52 AM CDT Menopause LIPID PANEL Routine 04/18/2023 10:[address] CAR INSPECTOR COMPREHENSIVE METABOLIC PANEL Routine 10/11/2021 8:43 AM CDT Type 2 diabetes mellitus with hyperlipidemia (HCC) COLONOSCOPY Routine 05/03/2021 from Last 3 Months or Most Recently Relevant to Health Maintenance Results * (ABNORMAL) DIABETES EYE EXAM (03/18/2024 8:[address] CAR INSPECTOR) SCRIBED DIABETIC DILATED EYE EXAM Abnormal us Historical Provider HEALTH MAINTENANCE Edited Result - Final * Screening Mammogram Bilateral W Lonnie (12/20/2023 9:[address] CAR INSPECTOR) Anatomical Region Laterality Modality Breast Bilateral Mammography Impressions 12/20/2023 9:[address] CAR INSPECTOR BI-RADS ATLAS category (overall): 2 - Benign There is no mammographic evidence of malignancy. A 1 year screening mammogram is recommended. The patient has been or will be contacted. We recommend annual screening mammography for women at average risk of breast cancer beginning at age 40, based on guidelines of the [place] [employer] (ACR Practice Parameter for the Performance of Screening and Diagnostic Mammography) and [place] [employer]. For women with and elevated risk of breast cancer, please refer to the ACR Practice Parameter for specific screening recommendations. The patient will be entered into a reminder system with a target due date of 1 year for her next screening exam. Narrative 12/20/2023 9:[address] CAR INSPECTOR Screening Mammogram Bilateral W Lonnie: 12/20/23 The study was acquired using full field digital technology and interpreted from soft copy. 2D digital mammographic views, as well as 3D digital tomosynthesis were performed in the CC and MLO projections. CLINICAL: Breast cancer screening by mammogram. No relevant medical history has been documented for this patient. No known family history of breast cancer. COMPARISONS: 12/14/2022 Diagnostic Mammogram Bilateral W Lonnie 12/14/2022 US Breast Right Limited 06/10/2022 DIAGNOSTIC MAMMOGRAM BILATERAL W LONNIE 06/10/2022 US Breast Right Limited 12/08/2021 Diagnostic Mammogram Bilateral W Lonnie 12/08/2021 US Breast Right Limited 06/03/2021 DIAGNOSTIC MAMMOGRAM BILATERAL W LONNIE 06/03/2021 US Breast Right Limited 12/03/2020 DIAGNOSTIC MAMMOGRAM BILATERAL W LONNIE 12/03/2020 US Breast Bilateral Limited 11/10/2020 Screening Mammogram Bilateral W Lonnie BREAST TISSUE: There are scattered areas of fibroglandular density. FINDINGS: There are multiple small benign masses in both breasts without suspicious interval change. There is no new suspicious finding in either breast on mammogram. Terri [facility] IMG MAMMO PROCEDURES Final Result * CT Chest WO Contrast F/U Lung Screen Protocol (10/26/2023 8:52 AM CDT) Anatomical Region Laterality Modality Chest N/A Computed Tomogra phy 10/26/2023 2:58 PM CDT Narrative 10/26/2023 3:17 PM CDT EXAM DESCRIPTION: CT CHEST WO CONTRAST F/U LUNG SCREEN PROTOCOL REASON FOR STUDY: Screening CT of the chest in a former smoker with a 40 pack year smoking history. Additional history: None. TECHNIQUE: Low dose CT scan of the chest was performed without intravenous contrast using helical scanning technique. The exam extends from the lung apices through the lung bases. Automatic exposure control was used as a dose optimization technique. NOTE: This study was performed for the specific purposes of lung cancer screening and is not an alternative to diagnostic chest CT. RADIATION DOSE: CT dose index volume (CTDIvol) = 2.37 mGy COMPARISON: 04/24/2023 FINDINGS: SMOKING RELATED LUNG DISEASE: There are mild emphysematous changes of lungs with scattered mild subsegmental atelectasis and scarring. There is no definite evidence of a pneumothorax. The central airways are grossly patent. There is no definite evidence of focal consolidation or pleural effusion. LUNG NODULES: There are scattered pulmonary nodules noted, similar to the prior study. For example, there is a stable 0.2 cm pulmonary nodule in the anterior right upper lobe (axial image 32). There is a grossly stable 0.3 cm right middle lobe pulmonary nodule (axial image 182). There is a grossly stable 0.4 cm left upper lobe pulmonary nodule (axial image 62). There is a stable subpleural 0.3 cm pulmonary nodule in the lateral left upper lobe (axial image 63). There is a stable 0.4 cm left lower lobe pulmonary nodule (axial image 203). CORONARY ARTERY CALCIFICATION: Present. OTHER: There are interval postsurgical changes of thyroidectomy noted. The heart size is upper limits of normal. There is no definite evidence of pericardial effusion. There are atherosclerotic changes of the thoracic aorta. There are mild atherosclerotic changes of the coronary vessels. There is dilatation of main pulmonary artery measuring up to 4.0 cm, which is concerning for pulmonary arterial hypertension. There is no definite unenhanced CT evidence of mediastinal, hilar, or axillary lymphadenopathy. There are scattered subcentimeter axillary lymph nodes noted bilaterally with largest measuring 0.7 cm on the right (axial image 74) and 0.7 cm on the left (axial image 80). There is a small hiatal. The bilateral adrenal glands are grossly stable and unremarkable. There are scattered colonic diverticula noted. There is mild osteopenia. There is a dextroscoliotic curvature of the spine with degenerative changes. IMPRESSION: Redemonstration of scattered small pulmonary nodules measuring up to 0.4 cm, grossly similar to the prior study. No definite evidence of a new suspicious pulmonary nodule. Mild emphysematous changes of lungs with scattered mild subsegmental atelectasis and scarring. Lung-RADS category 2: Benign appearance or behavior. Recommendation: Low dose Screening CT of chest in 12 months. THIS IS AN ELECTRONICALLY VERIFIED FINAL REPORT 10/26/2023 3:17 PM - Electronically signed by David Sheehan D.O. PS: PS Report ID: [id number] Reading Location: [place] [address] Procedure Note David Sheehan, - 10/26/2023 EXAM DESCRIPTION: CT CHEST WO CONTRAST F/U LUNG SCREEN PROTOCOL REASON FOR STUDY: Screening CT of the chest in a former smoker with a 40 pack year smoking history. Additional history: None. TECHNIQUE: Low dose CT scan of the chest was performed without intravenous contrast using helical scanning technique. The exam extends from the lung apices through the lung bases. Automatic exposure control was used as adose optimization technique. NOTE: This study was performed for the specific purposes of lung cancer screening and is not an alternative to diagnostic chest CT. RADIATION DOSE: CT dose index volume (CTDIvol) = 2.37 mGy COMPARISON: 04/24/2023 FINDINGS: SMOKING RELATED LUNG DISEASE: There are mild emphysematouschanges of lungs with scattered mild subsegmental atelectasis and scarring. Thereis no definite evidence of a pneumothorax. The central airways are grossly patent. There is no definite evidence of focal consolidation or pleural effusion. LUNG NODULES: There are scattered pulmonary nodules noted, similar tothe prior study. For example, there is a stable 0.2 cm pulmonary nodule inthe anterior right upper lobe (axial image 32). There is a grossly stable 0.3cm right middle lobe pulmonary nodule (axial image 182). There is a grossly stable 0.4 cm left upper lobe pulmonary nodule (axial image 62). There olamide stable subpleural 0.3 cm pulmonary nodule in the lateral left upper lobe (axial image 63). There is a stable 0.4 cm left lower lobe pulmonarynodule (axial image 203). CORONARY ARTERY CALCIFICATION: Present. OTHER: There are interval postsurgical changes of thyroidectomy noted.The heart size is upper limits of normal. There is no definite evidence of pericardial effusion. There are atherosclerotic changes of the thoracic aorta. There are mild atherosclerotic changes of the coronary vessels.There is dilatation of main pulmonary artery measuring up to 4.0 cm, which is concerning for pulmonary arterial hypertension. There is no definite unenhanced CT evidence of mediastinal, hilar, oraxillary lymphadenopathy. There are scattered subcentimeter axillary lymph nodesnoted bilaterally with largest measuring 0.7 cm on the right (axial image 74)and 0.7 cm on the left (axial image 80). There is a small hiatal. The bilateral adrenal glands are grossly stableand unremarkable. There are scattered colonic diverticula noted. There is mild osteopenia. There is a dextroscoliotic curvature of thespine with degenerative changes. IMPRESSION: Redemonstration of scattered small pulmonary nodules measuring up to 0.4cm, grossly similar to the prior study. No definite evidence of a newsuspicious pulmonary nodule. Mild emphysematous changes of lungs with scattered mild subsegmental atelectasis and scarring. Lung-RADS category 2: Benign appearance or behavior. Recommendation: Low dose Screening CT of chest in 12 months. THIS IS AN ELECTRONICALLY VERIFIED FINAL REPORT 10/26/2023 3:17 PM - Electronically signed by David Sheehan D.O. PS: PS Report ID: [id number] Reading Location: [id number] [facility] HOD[facility] IMG CT PROCEDURES Final Re sult * (ABNORMAL) Hemoglobin A1c (07/31/2023 12:44 PM CDT) SCRIBED Hemoglobin A1c 6.1(A) 1 - 5.7 % EXTERNAL LAB Blood Historical Provider MD LAB BLOOD ORDERABLES Edit ed Result - Final EXTERNAL LAB * Dexa Axial Skeleton Bone Density 1 or 2 Site (04/24/2023 8:52 AM CDT) Anatomical Region Laterality Modality Body N/A Mammography 04/24/2023 6:15 PM CDT Narrative 04/24/2023 6:15 PM CDT EXAM DESCRIPTION: DEXA AXIAL SKELETON BONE DENSITY 1 OR MORE SITES REASON FOR STUDY: 67 y/o year old F with given history of: menopause, menopause Face Worker/Model: Wizdee A (S/N [id number]) CLINICAL INFORMATION: Current height: 64 inches Maximum height: 65 inches Weight: 240 pounds Risk factors: Postmenopausal, asthma or emphysema COMPARISON: None available FINDINGS: AP LUMBAR SPINE L1-L4: Total BMD is 1.469 g/cm2 T-score is 2.9 LEFT HIP: Total BMD is 1.327 g/cm2 T-score is 1.9 Femoral neck BMD is 0.901 g/cm2 T-score is -0.4 FRAX: FRAX not reported due to T-scores of hip, femoral neck and/or spine being at or above -1.0 (Normal). IMPRESSION: Normal bone mass. REFERENCE: Bone mineral density: T-Score: Normal (T-score above or = -1.0) Low bone mass (T-score between -1.0 and -2.5) replaces the previously used term osteopenia Osteoporosis (T-score = or below -2.5) Z-Score: Within the expected range for age (Z-score above -2.0) Below the expected range for age (Z-score is -2.0 or below) Please see below follow up recommendations. Medical evaluation for secondary causes of low bone mineral density may be appropriate. FRAX is a World Health Organization validated fracture risk assessment tool that calculates a person's 10 year probability of a major osteoporosis related fracture and hip fracture. According to the National Osteoporosis Foundation guidelines, postmenopausal women and men age 50 or older with low bone mass and a 10 year probability of a major osteoporosis related fracture = or greater than 20% or a 10 year probability of a hip fracture = or greater than 3% should be considered for pharmacological treatment for the prevention of osteoporosis. For further information, including treatment recommendations, please refer to the 2019 ISCD Official Positions (http://www.iscd.org) and the NOF's Clinician's Guide to Prevention and Treatment of Osteoporosis (http://www.nof.org/professionals/clinical-guidelines) THIS IS AN ELECTRONICALLY VERIFIED FINAL REPORT 04/24/2023 6:15 PM - Electronically signed by Will Ibrahim M.D. MF: CHANDA Report ID: [id number] Reading Location: [place] [address] Procedure Note Will Ibrahim MD - 04/24/2023 EXAM DESCRIPTION: DEXA AXIAL SKELETON BONE DENSITY 1 OR MORE SITES REASON FOR STUDY: 67 y/o year old F with given history of: menopause, menopause Face Worker/Model: Wizdee A (S/N [id number]) CLINICAL INFORMATION: Current height: 64 inches Maximum height: 65 inches Weight: 240 pounds Risk factors: Postmenopausal, asthma or emphysema COMPARISON: None available FINDINGS: AP LUMBAR SPINE L1-L4: Total BMD is 1.469 g/cm2 T-score is 2.9 LEFT HIP: Total BMD is 1.327 g/cm2 T-score is 1.9 Femoral neck BMD is 0.901 g/cm2 T-score is -0.4 FRAX: FRAX not reported due to T-scores of hip, femoral neck and/or spine beingat or above -1.0 (Normal). IMPRESSION: Normal bone mass. REFERENCE: Bone mineral density: T-Score: Normal (T-score above or = -1.0) Low bone mass (T-score between -1.0 and -2.5) replaces thepreviously used term osteopenia Osteoporosis (T-score = or below -2.5) Z-Score: Within the expected range for age (Z-score above -2.0) Below the expected range for age (Z-score is -2.0 or below) Please see below follow up recommendations. Medical evaluation forsecondary causes of low bone mineral density may be appropriate. FRAX is a World Health Organization validated fracture risk assessmenttool that calculates a person's 10 year probability of a major osteoporosisrelated fracture and hip fracture. According to the National OsteoporosisFoundation guidelines, postmenopausal women and men age 50 or older with low bonemass and a 10 year probability of a major osteoporosis related fracture = or greater than 20% or a 10 year probability of a hip fracture = or greaterthan 3% should be considered for pharmacological treatment for the preventionof osteoporosis. For further information, including treatment recommendations, please referto the 2019 ISCD Official Positions (http://www.iscd.org) and the NOF's Clinician's Guide to Prevention and Treatment of Osteoporosis (http://www.nof.org/professionals/clinical-guidelines) THIS IS AN ELECTRONICALLY VERIFIED FINAL REPORT 04/24/2023 6:15 PM - Electronically signed by Will Ibrahim M.D. MF: CHANDA Report ID: [id number] Reading Location: [place] [address] Terri [facility]GES [facility] DXA PROCEDURES Final R esult * HM LIPID PANEL (04/18/2023 10:[address] CAR INSPECTOR) [facility] SCRIBED Cholesterol, Total 145 SCRIBED Triglycerides 86 SCRIBED HDL 51 SCRIBED LDL 77 Historical Provider HEALTH MAINTENANCE Edited Result - Final * (ABNORMAL) Comprehensive metabolic panel (10/11/2021 8:43 AM CDT) Glucose 139(H) 65 - 99 mg/dL [facility] Comment: Fasting reference interval For someone without known diabetes, a glucose value >125 mg/dL indicates that they may have diabetes and this should be confirmed with a follow-up test. BUN 17 7 - 25 mg/dL [facility] Creatinine 0.92 0.50 - 1.05 mg/dL [facility] eGFR 69 > OR = 60 mL/min/1. 73m2 [facility] Comment: The eGFR is based on the CKD-EPI 2020 equation. To calculate the new eGFR from a previous Creatinine or Cystatin C result, go to https://www.kidney.org/professionals/ kdoqi/gfr%5Fcalculator BUN/creat ratio NOT APPLICABLE - (calc) [facility] Sodium 144 135 - 146 mmol/L [facility] Potassium, pl 4.0 3.5 - 5.3 mmol/L [facility] Chloride 106 98 - 110 mmol/L [facility] CO2 26 20 - 32 mmol/L [facility] Calcium 10.0 8.6 - 10.4 mg/dL [facility] Protein, sr 7.0 6.1 - 8.1 g/dL [facility] Albumin 4.2 3.6 - 5.1 g/dL [facility] GLOBULIN 2.8 1.9 - 3.7 g/dL (calc) [facility] Alb/glob ratio 1.5 1.0 - 2.5 (calc) [facility] Bilirubin, total 0.3 0.2 - 1.2 mg/dL [facility] Alk phos 81 37 - 153 U/L [facility] AST 12 10 - 35 U/L [facility] ALT (SGPT) 10 6 - 29 U/L [facility] Blood specimen (specimen) 10/11/2021 8:43 AM CDT 10/11/2021 8:47 AM CDT Narrative [facility] - 10/12/2021 4:22 AM CDT FASTING:YES PATIENT UNABLE TO VOID; ADVISED TO RETURN FOR COLLECTION. FASTING: YES Terri HODGES LAB BLOOD ORDERABLES Final Result [facility] [address] [facility] [place] [address] * COLONOSCOPY (05/03/2021) Scribed Colonoscopy Normal Narrative Terri Lopez PA - 05/03/2021 Dr. Silverio. Normal colonoscopy -- repeat 10 years. Historical Provider MD HEALTH MAINTENANCE Final Result from Last 3 Months or Most Recently Relevant to Health Maintenance Insurance [employer] ACCESS Care Teams Construction Person Relationship Specialty Start Date End Date Terri Lopez PA [address] [place], [place] [phone] PCP - General Internal Medicine 07/15/20 Deepali Vega DO [address] [place] [address] Referring Physician Internal Medicine 08/01/22
--- OUTSIDE RECORDS SUMMARY | 2024-05-01 18:34 | XMS_ITS | Clinical Summary ---
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 Gender Identity Not on file Sexual Orientation Not on file Plan of Treatment Health Maintenance Due Date Last Done Comments DEXA Bone Density 1955 Hepatitis C Virus (HCV) Screening 1955 TdaP Immunization 1955 Colonoscopy 04/27/2000 Colorectal Cancer Screening 04/27/2000 Cologuard 04/27/2005 Immunochemical Fecal Occult Blood 04/27/2005 Mammogram 04/27/2005 Pneumococcal Immunization (5 0+ years) (1 of 1 - PCV) 04/27/2005 Zoster Immunization (1 of 2) 04/27/2005 Influenza Immunization (#1) 2023 SARS-COV-2 Immunization (1 - 2023- season) 2023 Respiratory Syncytial Virus (RSV) Immunization (Adult) (1 - 1-dose 75+ series) 04/27/2030 Hepatitis B Immunization Aged Out No longer eligible based on patient's age to complete this topic Meningococcal Immunization (ACWY) Aged Out No longer eligible based on patient's age to complete this topic Rotavirus Immunization Aged Out No lo nger eligible based on patient's age to complete this topic
--- OUTSIDE RECORDS SUMMARY | 2024-05-01 18:34 | XMS_ITS | Clinical Summary ---
Author Organization [facility] Address [address] [facility] [place] [address] Care Team Providers Care Third Loader Name Role Phone Tawny Montano MD Unavailable Terri Lopez PA-C Primary Care Provider [phone] Source Comments [facility],non-owned Affiliates and Associated Physician Practices is amultiple site organization consisting of ambulatory clinics and hospital sitesin [place], [place] and [place]. This disclosure is being madepursuant to the Care Everywhere program and may not contain all information available regarding this patient. Last updated 17.[facility] Allergies Active Allergy Reactions Criticality Noted Date Comments Vzlkevl-Mykipqzcize-Zxkzbdr rol Headache Low 06/07/2023 Prednisone Other Low 01/13/2022 Hyperglycemia-ended up in hospital last time it was taken Medications * Be aware that medications may not be up to date on this document. Alwaysverify current medications with the patient. Medication Sig Dispensed Refills Start Date End Date Status albuterol HFA (PROAIR HFA) 108 (90 BASE) MCG/ACT inhaler Inhale 1 (one) puff by mouth every 6 hours as needed for Shortness of Breath 1 08/28/2015 Active One Touch Delica LancetsIndications: Type 2 diabetes mellitus without complication, without long-term current use of insulin (HCC) Use once for 1 dose 200 Each 4 07/17/2018 Active Blood Glucose Monitoring Suppl (ONETOUCH VERIO) w/Device KITIndications:Type 2 diabetes mellitus without complication, without long-term current use of insulin (HCC) Use 1 kit as directed 1 kit 07/17/2018 Active fluticasone propionate (FLONASE) 50 MCG/ACT nasal spray [place] 2 (two) sprays into each nostril 2 times daily 16 g 4 04/20/2020 Active albuterol (PROVENTIL;VENTOLIN ) (2.5 MG/3ML) 0.083% nebulizer solution Inhale by mouth 4 times daily as needed for Shortness of Breath or Wheezing Active benzonatate (Tessalon) 200 MG capsule Take 1 (one) capsule by mouth 3 times daily as needed for cough 01/08/2022 Active atorvastatin (Lipitor) 10 MG tabletIndications:N ontoxic single thyroid nodule TAKE 1 TABLET AT BEDTIME 90 tablet 3 05/16/2022 Active Additional Information Patient taking differently: 10 mg Oral DAILY, Reported on 07/31/2023 olmesartan-hydroCHL OROthiazide (Benicar HCT) 40-12.5 MG tabletIndications:E ssential hypertension Take 1 (one) tablet by mouth once daily 90 tablet 3 06/02/2022 Active omeprazole (PriLOSEC) 20 MG capsule Take 1 (one) capsule by mouth once daily 04/20/2023 Active cetirizine (ZyrTEC) 10 MG tablet Take 1 (one) tablet by mouth once daily 06/15/2023 Active metFORMIN ER 24hr (Glucophage XR) 500 MG tabletIndications:T ype 2 diabetes mellitus without complication, without long-term current use of insulin ([facility]) Take 2 (two) tablets by mouth every morning 180 tablet 3 07/03/2023 Active vitamin D, ergocalciferol, (Drisdol) 1.25 MG (10596 UT) capsule Take 1 (one) capsule by mouth every 7 days 12 capsule 4 07/03/2023 Active docusate sodium (Colace) 100 MG capsule Take 1 (one) capsule by mouth 2 times daily as needed for Constipation 30 capsule 08/24/2023 Active ibuprofen (Motrin) 600 MG tablet Take 1 (one) tablet by mouth every 6 hours as needed for Pain 60 tablet 08/24/2023 Active acetaminophen (Tylenol) 325 MG tablet Take 2 (two) tablets by mouth every 4 hours as needed for Fever or Pain Maximum allowable Acetaminophen amount = 4 Grams (4000 mg) / 24 hours. 60 tablet 08/24/2023 Active oxyCODONE, immediate release, (Roxicodone) 5 MG tabletIndications:S /P total thyroidectomy Take 1 (one) tablet by mouth every 6 hours as needed for Pain 15 tablet 08/24/2023 Active Additional Information Patient not taking.Reported on 03/18/2024 calcium carbonate (Tums) 500 MG chew tabletIndications:T hyroid goiter Take 5 (five) tablets by mouth 3 times daily with meals for 30 days, THEN 5 (five) tablets 2 times daily with morning and evening meal for 30 days, THEN 5 (five) tablets daily with food for 30 days. 08/24/2023 Active OneTouch Verio test stripIndications:Ty pe 2 diabetes mellitus without complication, without long-term current use of insulin (HCC) USE TWICE A DAY 200 strip 3 08/28/2023 Active Trulicity 1.5 MG/0.5ML injection Inject 1.5 (one and one-half) mg subcutaneously every 7 days 09/12/2023 Active levothyroxine (Synthroid) 88 MCG tablet Take 1 (one) tablet by mouth once daily 90 tablet 3 01/16/2024 Active cyanocobalamin (Vitamin B-12) 1000 MCG tablet Take 2 (two) tablets by mouth once daily 100 tablet 5 01/16/2024 Active dulaglutide (Trulicity) 1.5 MG/0.5ML injectionIndication s:Type 2 diabetes mellitus without complication, without long-term current use of insulin (HCC) Inject 1.5 (one and one-half) mg subcutaneously every 7 days 2 mL 5 01/22/2024 Active Active Problems Problem Noted Date Diagnosed Date Thyroid goiter 08/22/2023 Vitamin D deficiency 10/14/2020 Overview (08/26/2021): Last Assessment & Plan: Supplement ARLYN (obstructive sleep apnea) 08/15/2020 Overview (08/26/2021): Last Assessment & Plan: Discussed at length importance of using her CPAP with her diagnosis of sleep apnea. Reviewed the risks of undertreated CPAP the long-term effects. Encouraged her to get in with Dr. Cannon for follow-up as it is been 2019 since she was last seen Status post partial thyroidectomy 08/15/2020 Overview (08/26/2021): 2019 Dr[facility] Acosta at [facility] -- nodules Last Assessment & Plan: Dr. 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 Hypersomnia due to medical condition 05/03/2019 Full dentures 05/03/2019 Allergic rhinitis 02/16/2018 Essential hypertension 02/16/2018 Obesity 02/16/2018 Osteoarthrosis 02/16/2018 Nontoxic single thyroid nodule 11/15/2016 Chronic obstructive pulmonary disease 11/15/2016 Nontoxic goiter 11/15/2016 Type 2 diabetes mellitus without complications 1 Hyperlipidemia Encounters Date Type Department Care Team Description 03/18/2024 9:30 AM CONSTRUCTION SERVICES TECHNICIAN Office Visit [facility] - ENT [address] [place] [phone] Spencer Coronado MD Mixed conductive and sensorineural hearing loss of right ear with restricted hearing of left ear (Primary Dx); TONY (middle ear effusion), right 03/18/2024 9:00 AM CONSTRUCTION SERVICES TECHNICIAN Testing Visit [facility] - ENT [address] [place] [phone] Christina Mckinney AuD Sensorineural hearing loss (SNHL) of right ear with unrestricted hearing of left ear 03/18/2024 Travel from Last 3 Months Family History Medical History Relation Name Comments None Known Father Status: d Hyperlipidemia Maternal Aunt 1 Hypertension Maternal Aunt 2 Diabetes - Type 2 Maternal Grandfather Diabetes - Type 2 Mother Status: Al adela Thyroid Disease Sister Status: Aliv e Relation Name Status Comments Father Maternal Aunt 1 Maternal Aunt 2 Maternal Grandfather Mother Sister Social History Tobacco Use Types Packs/Day Years Used Date Smoking Tobacco: Former Cigarettes Q uit: 2015 Smokeless Tobacco: Never Tobacco Cessation:Counseling Given: Not Answered Alcohol Use Standard Drinks/Week Comments No 0 (1 standard drink = 0.6 oz pur e alcohol) AUDIT-C Answer Date Recorded Q1: How often do you have a drink containing alc ohol? Never 08/22/2023 Average Number of Drinks Not on file 024 Frequency of Binge Drinking Not on file 10/2023 PHQ-2 Answer Date Recorded Patient Health Questionnaire-2 Score 0 10/18/2022 Sex and Gender Information Value Date Recorded Sex Assigned at Not on file Gender Identity Not on file Sexual Orientation Not on file Last Filed Vital Signs Vital Sign Reading Time Taken Comments Blood Pressure 107/70 03/18/2024 9:07 AM CONSTRUCTION SERVICES TECHNICIAN Pulse 86 03/18/2024 9:07 AM CONSTRUCTION SERVICES TECHNICIAN Temperature 37.3 C (99.1 F) 08/24/2023 10:58 AM CDT Respiratory Rate 18 08/24/2023 10:5 8 AM CDT Oxygen Saturation 95% 01/16/2024 9:05 AM CONSTRUCTION SERVICES TECHNICIAN Inhaled Oxygen Concentration - - Weight 108.7 kg (239 lb 9.6 oz) 03/18/2024 9:07 AM CONSTRUCTION SERVICES TECHNICIAN Height 162.6 cm (5' 4 ) 03/18/2024 9:07 AM CONSTRUCTION SERVICES TECHNICIAN Body Mass Index 41.13 03/18/2024 9:07 AM CONSTRUCTION SERVICES TECHNICIAN Plan of Treatment Upcoming Encounters Date Type Department Care Team (Late st Contact Info) Description 06/04/2024 9:00 AM CDT Office Visit [facility] - Ophthalmology [address] [place] [phone] Karlos Varghese OD [address] [place] [phone] 07/23/2024 9:00 AM CDT Office Visit [facility] - Endocrinology [address] [place] [phone] Deepali Vega DO [address] [facility] [address] [place] [phone] 09/18/2024 9:00 AM CDT Testing Visit [facility] - ENT [address] [facility] [place] [phone] Christina Mckinney Meredith [address] [facility] [address] [place] [address] 09/18/2024 9:45 AM CDT Office Visit [facility] - ENT [address] [facility], [place] [phone] Spencer Coronado MD [address] [place] [address] Health Maintenance Due Date Last Done Comments COLOGUARD (AGES 45-75) - COLON CA SCREENING 1955 COLON MONITORING 1955 COLONOSCOPY - COLON CA SCREENING 1955 CT COLONOGRAPHY - COLON CA SCREENING 1955 Colorectal Cancer Screening 1955 FIT - COLON CA SCREENING 1955 FLEX SIG - COLON CA SCREENING 1955 DTAP/TDAP/TD VACCINES (1 - Tdap) 04/27/1974 PNEUMOCOCCAL VACCINE 50+ (1 of 2 - PCV) 04/27/1974 ZOSTER VACCINE (1 of 2) 04/27/2005 Respiratory Syncytial Virus (RSV) Vaccine Pt: or over 60 yrs (1 - Risk 60-74 years 1-dose series) 2015 DIABETES-FOOT EXAM WITH MONOFILAMENT 03/11/2020 03/11/2019 COVID-19 VACCINE (1 - 2023- season) 2023 INFLUENZA VACCINE (#1) 2023 DEPRESSION SCREENING 02/14/2024 05/31/2022 DIABETES - URINE PROTEIN SCREENING 02/14/2024 06/11/2019 DIABETES-HGB A1C 07/16/2024 01/16/2024, , 07/31/2023, Additional history exists DIABETES-SERUM CREATININE 01/15/20252023, 08/22/2023, 07/31/2023, Additional history exists MAMMOGRAM 12/19/2025 12/20/2023, 11/0 07/2023, 12/14/2022, Additional history exists DIABETES RETINOPATHY SCREENING 12/26/2025 12/27/2023, 12/27/2023, 05/31/2023, Additional history exists HEPATITIS C SCREENING Completed 06/06/2018 BONE DENSITY TESTING Completed 04/24/2023 HEPATITIS B VACCINE Aged Out No longe r eligible based on patient's age to complete this topic HIB VACCINE Aged Out No longer eligi ble based on patient's age to complete this topic HPV VACCINE Aged Out No longer eligi ble based on patient's age to complete this topic MENINGOCOCCAL (Group B) VACCINE SHARED DECISION-MAKING Aged Out No longer eligible based on patient's age to complete this topic MENINGOCOCCAL GROUPS A/C/Y/W VACCINE Aged Out No longer eligible based on patient's age to complete this topic Procedures Procedure Name Priority Date/Time Associated Diagnosis Comments AUDIOLOGY/TYMPANOMETRY ORDER Routine 03/18/2024 9:00 AM CONSTRUCTION SERVICES TECHNICIAN COMPREHENSIVE METABOLIC PANEL Routine 01/16/2024 9:56 AM CONSTRUCTION SERVICES TECHNICIAN Type 2 diabetes mellitus without complication, without long-term current use of insulin HEMOGLOBIN A1C - POINT OF CARE (AMB) [facility] Routine 01/16/2024 9:31 AM CONSTRUCTION SERVICES TECHNICIAN Type 2 diabetes mellitus without complication, without long-term current use of insulin MICROALB/CREAT RATIO URINE RANDOM PANEL Routine 06/11/2019 12:46 PM CDT Daytime sleepiness Snoring Type 2 diabetes mellitus without complication, with long-term current use of insulin HEPATITIS C AB SCREEN RFLX NAAT QUANT STAT 06/06/2018 3:14 PM CDT from Last 3 Months or Most Recently Relevant to Health Maintenance Results * AUDIOLOGY/TYMPANOMETRY ORDER (03/18/2024 9:00 AM CONSTRUCTION SERVICES TECHNICIAN) Rupesh Christina MckinneyMeredith - 03/18/2024 9:23 AM CONSTRUCTION SERVICES TECHNICIAN History: Mehnaz Pickard arrived for a hearing evaluation. Patient has a history of conductive hearing loss due to chronic fluid. Subjectively she has not noticed any changes. Results: Puretone air/bone conduction testing revealed a mild sloping to severe SN hearing loss in the right ear (conductive at 1kHz only). Results for the left ear revealed normal hearing. Speech understanding was excellent in both ears. Results were essentially stable when compared to her last hearing test. Immittance measures revealed a Type B with normal ECV tympanogram in the right ear, indicating abnormal middle ear function. Results for the left ear revealed a Type A tympanogram, indicating normal middle ear function in that ear. These results were discussed in detail with the patient and all pertinent questions were answered. Recommendations: 1) ENT consult. 2) Re check per medical recommendation, annually, or if a change in hearing is suspected. 3) Amplification RT if hearing loss persists. Meredith Esparza. [facility]-A Clinical Agricultural Engineering Technician [facility]-Department of Otolaryngology/Audiology [facility] [address] [place] [address] Christina Harper AUDIOLOGY SERVICES O RDERABLES * (ABNORMAL) COMPREHENSIVE METABOLIC PANEL (01/16/2024 9:56 AM CONSTRUCTION SERVICES TECHNICIAN) BUN 15 7 - 26 mg/dL 01/16/2024 11:21 AM [facility] Creatinine 0.97(H) 0.56 - 0.96 mg/dL 01/16/2024 11:21 AM [facility] Sodium 144 136 - 145 mmol/L 01/16/2024 11:21 AM [facility] Potassium 3.8 3.5 - 4.5 mmol/L 01/16/2024 11:21 AM [facility] Chloride 108(H) 98 - 107 mmol/L 01/16/2024 11:21 AM [facility] CO2 24 22 - 29 mmol/L 01/16/2024 11:21 AM [facility] Glucose 111(H) 70 - 99 mg/dL 01/16/2024 11:21 AM [facility] Calcium 8.8 8.4 - 10.2 mg/dL 01/16/2024 11:21 AM [facility] Protein Total 7.3 6.0 - 8.3 g/dL 01/16/2024 11:21 AM [facility] Albumin 3.8 3.4 - 5.0 g/dL 01/16/2024 11:21 AM [facility] Bilirubin Total 0.3 0.2 - 1.2 mg/dL 01/16/2024 11:21 AM [facility] Alkaline Phosphatase 82 40 - 150 U/L 01/16/2024 11:21 AM [facility] ALT 15 5 - 55 U/L 01/16/2024 11:21 AM [facility] AST 16 5 - 34 U/L 01/16/2024 11:21 AM [facility] Anion Gap 12 6 - 16 01/16/2024 11:21 AM [facility] BUN/Creatinine Ratio 15 7 - 23 01/16/2024 11:21 AM [facility] Osmolality Calculated 300(H) 275 - 295 mOsm/kg 01/16/2024 11:21 AM [facility] Albumin/Globulin Ratio 1.1 1.1 - 2.3 01/16/2024 11:21 AM [facility] eGFR by CKD-EPI 64(L) >=90 mL/min/1.7 3 m2 01/16/2024 11:21 AM [facility] Blood BLOOD SPECIMEN / Unknown Lab Venipuncture / Unknown 01/16/2024 9:56 AM CONSTRUCTION SERVICES TECHNICIAN 01/16/2024 10:14 AM CONSTRUCTION SERVICES TECHNICIAN Deepali Vega DO LAB - CHEMISTRY ORDE RABLES [facility] [address] [place] [address], [facility] [phone] * HEMOGLOBIN A1C - POINT OF CARE (AMB) [facility] (01/16/2024 9:31 AM CONSTRUCTION SERVICES TECHNICIAN) Hemoglobin A1c POCT 6.0 % [address] BLOOD SPECIMEN / Unknown 01/16/2024 9:31 AM CONSTRUCTION SERVICES TECHNICIAN Deepali Vega DO LAB - POINT OF CARE ORDERABLES [place] [id number] [facility] [place] [phone], [facility] [phone] * MICROALB/CREAT RATIO URINE RANDOM PANEL (06/11/2019 12:46 PM CDT) Pathologist [facility] Albumin Random Urine 5.0 Not Established mcg/mL 06/11/2019 2:46 PM CDT [facility] Creatinine Urine 134 Not Established mg/dL 06/11/2019 2:46 PM CDT [facility] Comment:Result obtained by d lazaro. Urine Albumin/Creati nine Ratio 4 <30 mg/g 06/11/2019 2:46 PM CDT [facility] Urine URINE SPECIMEN OBTAINED BY CLEAN CATCH PROCEDURE / Unknown Collection / Unknown 06/11/2019 12:46 PM CDT 06/11/2019 12:59 PM CDT Magaly Bautista MD LAB - URINE CH EMISTRY ORDERABLES [address] [phone] * HEPATITIS C AB SCREEN RFLX NAAT QUANT (06/06/2018 3:14 PM CDT) [facility] Hepatitis C Antibody Non-react adela Non-reac tive 06/06/2018 4:14 PM CDT [facility] Comment: Hepatitis C Antibody screen indicates no serologic evidence of past or current infection with Hepatitis C Virus. Patients with unexplained liver disease who are immunocompromised or suspected of having acute Hepatitis C infection may benefit from Nucleic Acid Test (SRIKANTH) for Hepatitis C Viral RNA to confirm Hepatitis C status. Blood BLOOD SPECIMEN / Unknown Venipuncture / Unknown 06/06/2018 3:14 PM CDT 06/06/2018 3:28 PM CDT Claudia Lundy MD LAB - CHEMISTRY ALEX DUNNE [address] [phone] from Last 3 Months or Most Recently Relevant to Health Maintenance Advance Directives * Full Code (Latest Code Status on File) Date Activated Date Inactivated Comments 08/22/2023 12:58 PM 08/24/2023 5:22 PM Care Teams Third Loader Relationship Specialty Start Date End Date Terri Lopez PA-C [address] [place] [address] [address] [place] [phone] PCP - General 05/20/22 Tawny Montano MD [address] [place] [id number] Internal Medicine 08/20/21
--- OUTSIDE RECORDS SUMMARY | 2024-05-01 18:34 | XMS_ITS | Referral Summary ---
Author Organization [facility] [address] [place] [address] [place] [phone] Care Team Providers Care Speed Reading Teacher Name Role Phone Terri Lopez Primary Care Provider [phone] Deepali Vega DO Unavailable [phone] Encounters Date Type Department Care Team Description 03/18/2024 Orders Only [facility] Medical [facility] Family Medicine [address] [place] [address] [place] [phone] ProviderLee MD 03/08/2024 8:30 AM FACTORY MANAGER Office Visit [address] [place] [phone] Terri Lopez PA Annual physical exam (Primary Dx); Vitamin D deficiency; ARLYN (obstructive sleep apnea); Hypertension associated with diabetes (HCC); Type 2 diabetes mellitus with hyperlipidemia (HCC); Chronic obstructive pulmonary disease, unspecified COPD type (HCC); BMI 40.0-44.9, adult (HCC); Morbid obesity (HCC) from Last 3 Months Allergies Active Allergy Reactions Criticality Noted Date Comments Vigbhbsdcg-Zbonlsgw-Pt rmoterol Headache Low 06/07/2023 Prednisone Other (See comments) Low 01/13/2022 Hyperglycemia: ended up in hospital last time it was taken Medications blood glucose diagnostic strip Active lancing device/lancets (ONETOUCH DELICA LANC DEVICE MISC) Active blood-glucose meter misc Active dulaglutide (TRULICITY) 0.75 mg/0.5 mL pen [...] 03/17/2024 Assessment & Plan (03/17/2024 7:24 PM FACTORY MANAGER): Encouraged healthy lifestyle, good nutrition and exercise. Encouraged Calcium and Vitamin D and weight bearing exercise for bone health. Reviewed immunizations Reviewed age appropirate screenings. Status post complete thyroidectomy 09/18/2023 Overview (09/18/2023): 08/2023 -- Multinodular goiter removed at [facility] Dr. Lemus Started levothyroxine 88mcg PTH >4 post op Assessment & Plan (09/18/2023 12:49 PM CDT): 08/2023 -- Multinodular goiter removed at [facility] Dr. Lemus Started levothyroxine 88mcg PTH >4 post op Endo is monitoring her thyroid Multiple pulmonary nodules 06/15/2023 History of tobacco abuse 03/20/2023 Assessment & Plan (03/20/2023 9:36 AM FACTORY MANAGER): Discussed with patient Lung Cancer screening options [...] 11/16/2022 Assessment & Plan (03/08/2024 8:38 AM FACTORY MANAGER): Discussed the patient's BMI. The BMI is above average. BMI management plan is completed. BMI Follow-up includes: nutrition counseling, exercise counseling and education provided. Assessment & Plan (09/18/2023 12:49 PM CDT): Discussed the patient's BMI. The BMI is above average. BMI management plan is completed. BMI Follow-up includes: nutrition counseling, exercise counseling and education provided. Assessment & Plan (03/20/2023 8:41 AM FACTORY MANAGER): Discussed the patient's BMI. The BMI is [...] 11/16/2022 Assessment & Plan (03/08/2024 8:38 AM FACTORY MANAGER): Discussed the patient's BMI. The BMI is above average. BMI management plan is completed. BMI Follow-up includes: nutrition counseling, exercise counseling and education provided. Assessment & Plan (09/18/2023 12:49 PM CDT): Discussed the patient's BMI. The BMI is above average. BMI management plan is completed. BMI Follow-up includes: nutrition counseling, exercise counseling and education provided. Assessment & Plan (03/20/2023 8:41 AM FACTORY MANAGER): Discussed the patient's BMI. The BMI is [...] 10/14/2020 Assessment & Plan (03/17/2024 7:24 PM FACTORY MANAGER): Supplement Assessment & Plan (09/18/2023 12:49 PM CDT): Supplement Assessment & Plan (03/20/2023 9:33 AM FACTORY MANAGER): Supplement Assessment & Plan (11/16/2022 7:19 PM CDT): Supplement vitamin-D Assessment & Plan (08/17/2021 8:58 AM CDT): Supplement ARLYN (obstructive sleep apnea) 08/15/2020 Assessment & Plan (03/17/2024 7:24 PM FACTORY MANAGER): Patient refuses to use the CPAP. Reviewed [...] assistance Assessment & Plan (03/20/2023 9:33 AM FACTORY MANAGER): Patient has known ARLYN. Has CPAP but [...] using her CPAP every night to avoid termite renewal inspector sequela. Encouraged to keep followup with sleep COPD (chronic obstructive pulmonary disease) 02/2020 Assessment & Plan (03/17/2024 7:22 PM FACTORY MANAGER): Continue per Dr. Castro. Currently on albuterol [...] evaluation Assessment & Plan (03/20/2023 9:34 AM FACTORY MANAGER): Patient has COPD. She has been resistant [...] 02/2020 Assessment & Plan (03/17/2024 7:23 PM FACTORY MANAGER): Stressed importance of continued A1c control to minimize the mcfp effects of diabetes. Bring accuchecks to office [...] labs as needed. Managed by endocrinology at [facility]. Assessment & Plan (09/18/2023 12:48 PM CDT): Stressed importance of continued A1c control to minimize the mcfp effects of diabetes. Bring accuchecks to office [...] 1 g daily. Diabetes is managed by [facility] endocrinology Assessment & Plan (03/20/2023 9:32 AM FACTORY MANAGER): Stressed importance of continued A1c control to minimize the mcfp effects of diabetes. Bring accuchecks to office [...] needed. Continue diabetes management per Endocrinology at [facility]. Continue atorvastatin 10 mg Assessment & Plan [...] of continued A1c control to minimize the termite renewal inspector effects of diabetes. Bring accuchecks to office when instructed to do so. Check A1c about every 3-6 months. Take medication as prescribed. Get annual eye exam. Encouraged KASSIE/Statin if able to tolerate. Encouraged weight control and encouraged diabetic diet and exercise. Continue per Endo at [facility]. Assessment & Plan (08/17/2021 8:54 AM CDT): Encouraged patient to follow low fat/low chol diet like the Mediterranean diet. Increase good fats in the diet. Increase exercise. Monitor labs as needed. Continue statin Stressed importance of continued A1c control to minimize the termite renewal inspector effects of diabetes. Bring accuchecks to office when instructed to do so. Check A1c about every 3-6 months. Take medication as prescribed. Get annual eye exam. Encouraged KASSIE/Statin if able to tolerate. Encouraged weight control and encouraged diabetic diet and exercise. Continue per Endo at [facility]. Assessment & Plan (05/07/2021 9:30 PM CDT): Encouraged patient to follow low fat/low chol diet like the Mediterranean diet. Increase good fats in the diet. Increase exercise. Monitor labs as needed. Continue statin Assessment & Plan (10/25/2020 10:38 AM CDT): Stressed importance of continued A1c control to minimize the mcfp effects of diabetes. Bring accuchecks to office [...] 08/13/2020 Assessment & Plan (03/17/2024 7:23 PM FACTORY MANAGER): Bp is stable/in acceptable range for any co-morbidities. Encouraged to limit sodium intake and exercise for weight control. Continue olmesartan and hydrochlorothiazide Assessment & Plan (09/18/2023 12:23 PM CDT): Bp is stable/in acceptable range for any co-morbidities. Encouraged to limit sodium intake and exercise for weight control. Continue olmesartan hydrochlorothiazide Assessment & Plan (03/20/2023 9:34 AM FACTORY MANAGER): Bp is stable/in acceptable range for any co-morbidities. Encouraged to limit sodium intake and exercise for weight control. Continue olmesartan hydrochlorothiazide Assessment & Plan (11/16/2022 7:19 PM CDT): Bp is stable/in acceptable range for any co-morbidities. Encouraged to limit sodium intake and exercise for weight control. Continue olmesartan hydrochlorothiazide. Stressed importance of continued A1c control to minimize the termite renewal inspector effects of diabetes. Bring accuchecks to office [...] 03/17/2024 Assessment & Plan (03/20/2023 9:36 AM FACTORY MANAGER): Encouraged bone density to evaluate for osteoporosis Breast cancer screening by mammogram 03/20/2023 03/17/2024 Assessment & Plan (03/20/2023 9:36 AM FACTORY MANAGER): Mammogram order provided she will be due [...] CDT): Patient follows with Dr. Coronado at [facility]. There is concern for possible CSF leak. [...] 022 Assessment & Plan (04/16/2021 9:09 AM FACTORY MANAGER): Obesity is unchanged. Discussed the patient's BMI. [...] provided. Assessment & Plan (04/16/2021 9:09 AM FACTORY MANAGER): Obesity is unchanged. Discussed the patient's BMI. [...] and education provided. Annual physical exam 08/15/2020 Colon cancer screening 08/15/202008/17 Assessment & Plan (05/07/2021 9:30 PM CDT): Scheduled for 05/03 Assessment & Plan (08/15/2020 8:43 PM CDT): Refer for colonoscopy Hyperglycemia 08/15/2020 08/15/2020 Lipid screening 08/15/2020 08/15/2020 Fatigue 08/15/2020 03/17/2024 Assessment & Plan (03/20/2023 9:35 AM FACTORY MANAGER): Probably multifactorial. Check labs and followup to [...] 09/18/2023 Overview (08/15/2020): [address] [facility] -- nodules Assessment & Plan (08/15/2020 8:43 PM CDT): Dr. Acosta manages thyroid levels BMI 40.0-44.9, adult 08/13/2020 021 Assessment & Plan (08/13/2020 10:51 AM CDT): Obesity is unchanged. Discussed the patient's BMI. The BMI is above average. BMI management plan is completed. BMI Follow-up includes: nutrition counseling, exercise counseling and education provided. Morbid obesity with BMI of 4 0.0-44.9, adult ([facility]) 08/13/2020 10/14/2020 Assessment & Plan (08/13/2020 10:52 AM CDT): Obesity is unchanged. Discussed the patient's BMI. The BMI is above average. BMI management plan is completed. BMI Follow-up includes: nutrition counseling, exercise counseling and education provided. History of 2019 novel sam virus disease (COVID-19) 08/13/2020 04/16/2021 Immunizations Immunization Administration Dates Next Due Influenza, Unspecified 02/14/2024(Deferr ed: Patient Refused),03/16/2022(Deferred: Patient Refused),03/16/2021(Deferred: Patient Refused),02/13/2021(Deferred: Patient Refused) Social History Tobacco Use Types Packs/Day Years [...] on file Legal Sex Female 6:13 PM FACTORY MANAGER Gender Identity Female 11/09/2020 12:04 PM CDT Sexual Orientation Straight 11/09/2020 12 :04 PM CDT Last Filed Vital Signs Vital Sign Reading Time Taken Comments Blood Pressure 126/74 03/08/2024 8:35 AM FACTORY MANAGER Pulse 75 03/08/2024 8:35 AM FACTORY MANAGER Temperature 36.7 C (98.1 F) 03/08/2024 8:35 AM FACTORY MANAGER Respiratory Rate 18 01/04/2024 8:41 AM FACTORY MANAGER Oxygen Saturation 96% 03/08/2024 8:35 AM FACTORY MANAGER Inhaled Oxygen Concentration - - Weight 110.2 kg (243 lb) 03/08/2024 8:35 AM FACTORY MANAGER Height 162.6 cm (5' 4 ) 03/08/2024 8:35 AM FACTORY MANAGER Body Mass Index 41.71 03/08/2024 8:35 AM FACTORY MANAGER Plan of Treatment Not on file Procedures Procedure Name Priority Date/Time Associated Diagnosis Comments DIABETES EYE EXAM Routine 03/18/2024 8:57 AM FACTORY MANAGER SCREENING MAMMOGRAM BILATERAL W LONNIE Schedule Routine, Read Routine (OP Routine) 12/20/2023 9:17 AM FACTORY MANAGER Breast cancer screening by mammogram CT CHEST WO CONTRAST F/U LUNG SCREEN PROTOCOL Schedule Routine, Read Routine (OP Routine) 10/26/2023 8:52 AM CDT Pulmonary nodules HEMOGLOBIN A1C Routine 07/31/2023 12:44 PM CDT DEXA AXIAL SKELETON BONE DENSITY 1 OR MORE SITES Schedule Routine, Read Routine (OP Routine) 04/24/2023 8:52 AM CDT Menopause LIPID PANEL Routine 04/18/2023 10:49 AM FACTORY MANAGER COMPREHENSIVE METABOLIC PANEL Routine 10/11/2021 8:43 AM CDT Type 2 diabetes mellitus with hyperlipidemia (HCC) COLONOSCOPY Routine 05/03/2021 from Last 3 Months or Most Recently Relevant to Health Maintenance Results * (ABNORMAL) DIABETES EYE EXAM (03/18/2024 8:57 AM FACTORY MANAGER) SCRIBED DIABETIC DILATED EYE EXAM Abnormal us Historical Provider [facility] MAINTENANCE Edited Result - Final * Screening Mammogram Bilateral W Lonnie (12/20/2023 9:17 AM FACTORY MANAGER) Anatomical Region Laterality Modality Breast Bilateral Mammography Impressions 12/20/2023 9:24 AM FACTORY MANAGER BI-RADS ATLAS category (overall): 2 - Benign There is no mammographic evidence of malignancy. A 1 year screening mammogram is recommended. The patient has been or will be contacted. We recommend annual screening mammography for women at average risk of breast cancer beginning at age 40, based on guidelines of the [employer] (ACR Practice Parameter for the Performance of Screening and Diagnostic Mammography) and [employer]. For women with and elevated risk of breast cancer, please refer to the ACR Practice Parameter for specific screening recommendations. The patient will be entered into a reminder system with a target due date of 1 year for her next screening exam. Narrative 12/20/2023 9:24 AM FACTORY MANAGER Screening Mammogram Bilateral W Lonnie: 12/20/23 The [...] in either breast on mammogram. Terri HODGES IM MAMMO PROCEDURES Final Result * CT Chest [...] David Sheehan D.O. PS: PS Report ID: [id number] Reading Location: [id number] Procedure Note David Sheehan, DO - 10/26/2023 EXAM DESCRIPTION: CT CHEST WO [...] David Sheehan D.O. PS: PS Report ID: [id number] Reading Location: [place] [address] PROCEDURES Final Re sult * (ABNORMAL) Hemoglobin A1c (07/31/2023 12:44 PM CDT) SCRIBED Hemoglobin A1c 6.1(A) 1 - 5.7 % EXTERNAL LAB Blood Historical Provider LAB BLOOD ORDERABLES Edit ed Result - [...] F with given history of: menopause, menopause Fpga Design Engineer/Model: Mobisante A (S/N [id number]) CLINICAL INFORMATION: Current height: 64 inches Maximum [...] Will Ibrahim M.D. MF: CHANDA Report ID: [id number] Reading Location: [id number] Procedure Note Will Ibrahim MD - 04/24/2023 EXAM DESCRIPTION: DEXA AXIAL SKELETON BONE DENSITY 1 OR MORE SITES REASON FOR STUDY: 67 y/o year old F with given history of: menopause, menopause Fpga Design Engineer/Model: Hologic Horizon A (S/N [id number]) CLINICAL INFORMATION: Current height: 64 inches Maximum [...] Will Ibrahim M.D. MF: CHANDA Report ID: [id number] Reading Location: [place] [address] Terri HODGES IMGuanako DXA PROCEDURES Final R esult * HM LIPID PANEL (04/18/2023 10:49 AM FACTORY MANAGER) Pathologist [facility] SCRIBED Cholesterol, Total 145 SCRIBED Triglycerides 86 SCRIBED HDL 51 SCRIBED LDL 77 Historical Provider HEALTH MAINTENANCE Edited Result - Final * (ABNORMAL) Comprehensive metabolic panel (10/11/2021 8:43 AM CDT) Pathologist [facility] Glucose 139(H) 65 - 99 mg/dL [facility] Comment: Fasting reference interval For someone without known diabetes, a glucose value >125 mg/dL indicates that they may have diabetes and this should be confirmed with a follow-up test. BUN 17 7 - 25 mg/dL [facility] Creatinine 0.92 0.50 - 1.05 mg/dL [facility] eGFR 69 > OR = 60 mL/min/1. 73m2 [facility] Comment: The eGFR is based on the CKD-EPI 2020 equation. To calculate the new eGFR from a previous Creatinine or Cystatin C result, go to https://www.kidney.org/professionals/ kdoqi/gfr%5Fcalculator BUN/creat ratio NOT APPLICABLE 6 - 22 (calc) [facility] Sodium 144 135 - 146 mmol/L [facility] Potassium, pl 4.0 3.5 - 5.3 mmol/L [facility] Chloride 106 98 - 110 mmol/L [facility] CO2 26 20 - 32 mmol/L [facility] Calcium 10.0 8.6 - 10.4 mg/dL [facility] Protein, sr 7.0 6.1 - 8.1 g/dL [facility] Albumin 4.2 3.6 - 5.1 g/dL [facility] GLOBULIN 2.8 1.9 - 3.7 g/dL (calc) [facility] Alb/glob ratio 1.5 1.0 - 2.5 (calc) [facility] Bilirubin, total 0.3 0.2 - 1.2 mg/dL [facility] Alk phos 81 37 - 153 U/L [facility] AST 12 10 - 35 U/L [facility] ALT (SGPT) 10 6 - 29 U/L [facility] Blood specimen (specimen) 10/11/2021 8:43 AM CDT 10/11/2021 8:47 AM CDT Narrative [facility] - 10/12/2021 4:22 AM CDT FASTING:YES PATIENT UNABLE TO VOID; ADVISED TO RETURN FOR COLLECTION. FASTING: YES us Terri HODGES LAB BLOOD ORDERABLES Final Result [facility] [address] [facility] [phone] * COLONOSCOPY (05/03/2021) Scribed Colonoscopy Normal Narrative Terri Lopez PA - 05/03/2021 Dr. Silverio. Normal colonoscopy -- repeat 10 years. us Historical Provider MD HEALTH MAINTENANCE Final Result from Last 3 Months or Most Recently Relevant to Health Maintenance Insurance [employer] ACCESS Care Teams Speed Reading Teacher Relationship Specialty Start Date End Date Terri Lopez PA [address] [place], [place] [id number] PCP - General Internal Medicine 07/15/20 Deepali Vega DO [address] [facility] 2 [place] [address] Referring Physician Internal Medicine 08/01/22
--- OUTSIDE RECORDS SUMMARY | 2024-05-01 18:34 | XMS_ITS | Encounter Summary ---
Author Organization [facility] Address [address] [place] [address] Care Team Providers Care Aquaculture Program Director Name Role Phone Tawny Montano MD Unavailable Terri Lopez PA-C Primary Care Provider [phone] Reason for Visit * Reason Comments MEDICATION REFILL Encounter Details Date Type Department Care Team (Late Contact Info) Description 01/19/2024 Refill [facility] - Endocrinology [address] [place] [address], [facility] [place] [phone] Tina Nuno MD [address] [place] [address] [place] [phone] MEDICATION REFILL Social History Tobacco Use Types Packs/Day Years Used Date Smoking Tobacco: Former Cigarettes Q uit: 2015 Smokeless Tobacco: Never Alcohol Use Standard Drinks/Week Comments No 0 [...] on file Sexual Orientation Not on file documented as of this encounter Plan of Treatment Upcoming Encounters Date Type Department Care Team (Late st Contact Info) Description 06/04/2024 9:00 AM CDT Office Visit [facility] - Ophthalmology [address] [place] [phone] Karlos Varghese OD [address] [place] [address] 07/23/2024 9:00 AM CDT Office Visit [facility] - Endocrinology [address] [place] [phone] Deepali Vega, [address] [facility] 2 [place] [phone] 09/18/2024 9:00 AM CDT Testing Visit [facility] - ENT [address] [place] [phone] Christina Mckinney AuD [address] [place] [address] [address] [place] [address] 09/18/2024 9:45 AM CDT Office Visit [facility] - ENT [address] [place] [phone] Spencer Coronado MD [address] [place] [address] [address] [place] [address] documented as of this encounter Visit Diagnoses Diagnosis Type 2 diabetes mellitus without complication, without long-term current use of insulin (HCC) documented in this encounter Care Teams Aquaculture Program Director Relationship Specialty Start Date End Date Terri Lopez PA-C [facility] [phone] PCP - General 05/20/22 [place] [address] [address] Internal Medicine 08/20/21 documented as of this encounter
--- OUTSIDE RECORDS SUMMARY | 2024-05-01 18:34 | XMS_ITS | Encounter Summary ---
Author Organization [facility] Address [address] [facility] [place] [address] Care Team Providers Care Electronic Equipment Installer Name Role Phone Tawny Montano MD Unavailable Terri Lopez PA-C Primary Care Provider [phone] Reason for Visit * Reason Onset Date Comments MEDICATION REFILL 07/31/2023 Encounter Details Date Type Department Care Team (Late Contact Info) Description 07/31/2023 Refill [facility] - Internal Med [address] [place] [phone] Deepali Vega DO [address] [place] [phone] MEDICATION REFILL Social History Tobacco Use Types Packs/Day Years Used Date Smoking Tobacco: Former Cigarettes Q uit: 2015 Smokeless Tobacco: Never Alcohol Use Standard Drinks/Week Comments No 0 (1 standard drink = 0.6 oz pur e alcohol) PHQ-2 Answer Date Recorded Patient Health Questionnaire-2 Score 0 10/18/2022 Sex and Gender Information Value Date Recorded Sex Assigned at Not on file Gender Identity Not on file Sexual Orientation Not on file documented as of this encounter Plan of Treatment Upcoming Encounters Date Type Department Care Team (Late Contact Info) Description 06/04/2024 9:00 AM CDT Office Visit [facility] - Ophthalmology [address] [place] [phone] Karlos Varghese, OD [address] [place] [address] 07/23/2024 9:00 AM CDT Office Visit [facility] - Endocrinology [address] [place] [phone] Deepali Vega DO [address] [facility] [address] [place] [phone] 09/18/2024 9:00 AM CDT [facility] [address] [facility], [place] [phone] Christina Mckinney AuD [address] [facility] [address] [place] [address] 09/18/2024 9:45 AM CDT Office Visit [facility] - ENT [address] [facility], [place] [phone] Spencer Coronado MD [address] [facility] 2L [place] [address] documented as of this encounter Visit Diagnoses Diagnosis Type 2 diabetes mellitus without complication, without long-term current use of insulin (HCC) documented in this encounter Care Teams Electronic Equipment Installer Relationship Specialty Start Date End Date Terri Lopez PA-C [facility]5 [facility] 500 [place] [phone] PCP - General 05/20/22 [place] [address] [address] Internal Medicine 08/20/21 documented as of this encounter
--- OUTSIDE RECORDS SUMMARY | 2024-05-01 18:34 | XMS_ITS | Encounter Summary ---
Author Organization [facility] Address [address] [place] [address] Care Team Providers Care Kiln Feeder Name Role Phone Tawny Montano MD Unavailable Terri Lopez PA-C Primary Care Provider [phone] Reason for Visit * Reason Onset Date Comments MEDICATION REFILL 10/20/2022 Encounter Details Date Type Department Care Team (Late Contact Info) Description 10/20/2022 Refill [facility] - Endocrinology [address] [place] [phone] Deepali Vega DO [address] [place] [phone] MEDICATION REFILL Social History Tobacco Use Types [...] Office Visit [facility] - Ophthalmology [address] [place] [phone] Karlos Varghese OD [address] [place] [address] 07/23/2024 9:00 AM CDT Office Visit [facility] - Endocrinology [address] [place] [phone] Deepali Vega DO [address] [place] [phone] 09/18/2024 9:00 AM CDT [facility] [address] [facility], [place] [phone] Christina Mckinney AuD [address] [facility] [address] [place] [address] 09/18/2024 9:45 AM CDT Office Visit [facility] - ENT [address] [facility], [place] [phone] Spencer Coronado MD [address] [facility] 2L [place] [address] documented as of this encounter Visit Diagnoses Diagnosis Type 2 diabetes mellitus without complication, without long-term current use of insulin (HCC) documented in this encounter Care Teams Kiln Feeder Relationship Specialty Start Date End Date Terri Lopez PA-C [facility]5 [facility] 500 [place] [phone] PCP - General 05/20/22 [place] [address] [address] Internal Medicine 08/20/21 documented as of this encounter
--- OUTSIDE RECORDS SUMMARY | 2024-05-01 18:34 | XMS_ITS | Encounter Summary ---
Author Organization [facility] Address [facility] [place] [address] Care Team Providers Care Lead Nuclear Medicine Technologist Name Role Phone Nunda, Guido Birch Primary Care Provider [phone] Rodney Acosta MD Primary Care Provider Guido Donovan Primary Care Provider [phone] Guido Donovan Primary Care Provider [phone] Tawny Montano MD Unavailable Terri Lopez PA-C Primary Care Provider [phone] Encounter Details Date Type Department Care Team (Late st Contact Info) Description 10/22/2018 Telephone [facility] [address] [place] [address] Rodney Acosta MD [address] [place] [address] [place] [address] Social History Tobacco Use Types Packs/Day Years Used Date Smoking Tobacco: Former Smokeless Tobacco: Never Alcohol Use Standard Drinks/Week Comments No 0 (1 standard drink = 0.6 oz pur e alcohol) Sex and Gender Information Value Date Recorded Sex Assigned at Not on file Gender Identity Not on file Sexual Orientation Not on file documented as of this encounter Miscellaneous Notes * Telephone Encounter - Valery Saunders - 10/22/2018 11:40 AM CDT Patient called in requesting a Med refill. Drug type:TRADJENTA Pharmacy:[facility], [address], [place] [address] Patient call back number: [phone] . Following Guideline rules, we informed the patient clinic will contact them within 24 business hours. documented in this encounter Plan of Treatment Upcoming Encounters Date Type Department Care Team (Late st Contact Info) Description 06/04/2024 9:00 AM CDT Office Visit [facility] [address] [place] [phone] Karlos Varghese OD [facility]5 [place] [phone] 07/23/2024 9:00 AM CDT [facility] [address] [place] [phone] Deepali Vega DO [address] [place] [address] 2 [place] [phone] 09/18/2024 9:00 AM CDT Testing Visit [facility] - ENT [address] [place] [phone] Christina Mckinney, Meredith [address] [place] [address] DO[address] 3 [place] [address] 09/18/2024 9:45 AM CDT Office Visit [facility] ENT [address] [place] [phone] Spencer Coronado MD [address] [place] [address] [place] [address] documented as of this encounter Visit Diagnoses Not on filedocumented in this encounter Care Teams Lead Nuclear Medicine Technologist Relationship Specialty Start Date End Date Guido Donovan [address] [place] [phone] PCP - General 02/16/18 06/10/19 Rodney Acosta MD [address] [address] PCP - General Endocrinology 06/11/19 06/17/19 Guido Donovan [address] [place] [phone] PCP - General 06/18/19 07/08/20 Guido Donovan [address] [place] [phone] PCP - General 10/28/20 05/19/22 Terri Lopez PA-C [address] [phone] PCP - General 05/20/22 [place] [address] [address] Internal Medicine 08/20/21 documented as of this encounter
--- NOTE | 2024-05-01 20:53 | PC.NURSE ---
Patient comes to the triage desk and states she is leaving due to wait. Patient advised to seek medical attention if necessary. Patient ambulates out of the waiting room without incident at 2049.
--- NOTE | 2024-05-01 23:04 | PC.NURSE ---
Pt was called out at 3 to go back to room and pt did not respond to call out. 2302: Pt name was called out again and pt did not respond to call out again. Pt left without being seen by provider.
--- OUTSIDE RECORDS SUMMARY | 2024-05-01 23:25 | XMS_ITS | Clinical Summary ---
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
--- OUTSIDE RECORDS SUMMARY | 2024-05-01 23:25 | XMS_ITS | Encounter Summary ---
Author Organization [facility] Address [address] [facility] [place] [address] Care Team Providers Care Senior Network Engineer Name Role Phone Tawny Montano MD Unavailable [phone] Terri Lopez PA-C Primary Care Provider [phone] Reason for Visit * Reason Onset Date Comments MEDICATION REFILL 10/20/2022 Encounter Details Date Type Department Care Team (Late Contact Info) Description 10/20/2022 Refill [facility] [address] [place] [phone] Deepali Vega DO [address] [place] [phone] MEDICATION REFILL Social History Tobacco Use Types [...] Office Visit [facility] [address] [place] [phone] Karlos Varghese OD [address] [place] [address] 07/23/2024 9:00 AM CDT Office Visit [facility] [address] [place] [phone] Deepali Vega DO [address] [facility] 2 [place] [phone] 09/18/2024 9:00 AM CDT [facility] 1225 [facility], [place] [phone] Christina Mckinney AuD [address] [facility] DOOR 3 [place] [address] 09/18/2024 9:45 AM CDT Office Visit [facility] 12[address] [facility], [place] [phone] Spencer Coronado MD 1225 [facility] 2L [place] [address] documented as of this encounter Visit Diagnoses Diagnosis Type 2 diabetes mellitus without complication, without long-term current use of insulin (HCC) documented in this encounter Care Teams Senior Network Engineer Relationship Specialty Start Date End Date Terri Lopez PA-C [facility]5 [facility] 500 [place] [phone] PCP - General 05/20/22 [place] [address] [address] Internal Medicine 08/20/21 documented as of this encounter
--- OUTSIDE RECORDS SUMMARY | 2024-05-01 23:26 | XMS_ITS | Encounter Summary ---
Author Organization [facility] Address [address] [facility] [place] [address] Care Team Providers Care Fire Engine Pump Operator Name Role Phone Tawny Montano MD Unavailable Terri Lopez PA-C Primary Care Provider [phone] Reason for Visit * Reason Onset Date Comments MEDICATION REFILL 07/31/2023 Encounter Details Date Type Department Care Team (Late Contact Info) Description 07/31/2023 Refill [facility] Internal Med [address] [place] [phone] Deepali Vega DO [address] [place] [phone] MEDICATION REFILL Social History Tobacco Use Types [...] Office Visit [facility] [address] [place] [phone] Karlos Varghese, OD [address] [place] [address] 07/23/2024 9:00 AM CDT Office Visit [facility] [address] [place] [phone] Deepali Vega DO [address] [facility] 2 [place] [phone] 09/18/2024 9:00 AM CDT [facility] 1225 [facility], [place] [phone] Christina Mckinney AuD [address] [facility] DOOR 3 [place] [address] 09/18/2024 9:45 AM CDT Office Visit [facility] 1225 [facility], [place] [phone] Spencer Coronado MD 1225 [facility] 2L [place] [address] documented as of this encounter Visit Diagnoses Diagnosis Type 2 diabetes mellitus without complication, without long-term current use of insulin (HCC) documented in this encounter Care Teams Fire Engine Pump Operator Relationship Specialty Start Date End Date Terri Lopez PA-C [facility] 500 [place] [phone] PCP - General 05/20/22 [place] [address] [address] Internal Medicine 08/20/21 documented as of this encounter
--- OUTSIDE RECORDS SUMMARY | 2024-05-01 23:26 | XMS_ITS | Clinical Summary ---
Author Organization [facility] Address [address] [place] [address] Care Team Providers Care Husbandry Technician Name Role Phone Tawny Montano MD Unavailable [phone] Terri Lopez PA-C Primary Care Provider [phone] Source Comments [facility],non-owned Affiliates and Associated Physician Practices is amultiple site organization consisting of ambulatory clinics and hospital sitesin [place], [place], [place] and [place]. This disclosure is being madepursuant to the Care Everywhere program and may not contain all information available regarding this patient. Last updated 17.[facility] Allergies Active Allergy Reactions Criticality Noted Date Comments Juyxiar-Oanrsursnnt-Jzrxewe rol Headache Low 06/07/2023 Prednisone Other Low [...] fluticasone propionate (FLONASE) 50 MCG/ACT nasal spray [place] 2 (two) sprays into each nostril 2 [...] complication, without long-term current use of insulin ([facility]) Take 2 (two) tablets by mouth every morning 180 tablet 3 07/03/2023 Active vitamin D, ergocalciferol, (Drisdol) 1.25 MG (05024 UT) capsule Take 1 (one) capsule by [...] 08/15/2020 Overview (08/26/2021): [address] [facility] Acosta at [facility] -- nodules Last Assessment & Plan: Dr. 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); TONY (middle ear effusion), right 03/18/2024 9:00 AM SIDE STITCHER Testing Visit [facility] - ENT [address] [place] [phone] Christina Mckinney AuD Sensorineural hearing loss (SNHL) [...] Comments Blood Pressure 107/70 03/18/2024 9:07 AM SIDE STITCHER Pulse 86 03/18/2024 9:07 AM SIDE STITCHER Temperature 37.3 C (99.1 F) 08/24/2023 10:58 AM CDT Respiratory Rate 18 08/24/2023 10:5 8 AM CDT Oxygen Saturation 95% 01/16/2024 9:05 AM SIDE STITCHER Inhaled Oxygen Concentration - - Weight 108.7 kg (239 lb 9.6 oz) 03/18/2024 9:07 AM SIDE STITCHER Height 162.6 cm (5' 4 ) 03/18/2024 9:07 AM SIDE STITCHER Body Mass Index 41.13 03/18/2024 9:07 AM SIDE STITCHER Plan of Treatment Upcoming Encounters Date Type Department Care Team (Late st Contact Info) Description 06/04/2024 9:00 AM CDT Office Visit [facility] 12[address] [place] [phone] Karlos Varghese OD [address] [place] [address] 07/23/2024 9:00 AM CDT Office Visit [facility] End[facility] [address] [place] [phone] Deepali Vega DO [address] [facility] 2 [place] [phone] 09/18/2024 9:00 AM CDT Testing Visit [facility] 1225 [facility], [place] [phone] Christina Mckinney Meredith 1225 [facility] DOOR 3 [place] [address] 09/18/2024 9:45 AM CDT Office Visit [facility] [address] [facility], [place] [phone] Spencer Coronado MD [address] DEPT [place] [address] Health Maintenance Due Date Last Done Comments [...] Comments AUDIOLOGY/TYMPANOMETRY ORDER Routine 03/18/2024 9:00 AM SIDE STITCHER COMPREHENSIVE METABOLIC PANEL Routine 01/16/2024 9:56 AM SIDE STITCHER Type 2 diabetes mellitus without complication, without long-term current use of insulin HEMOGLOBIN A1C - POINT OF CARE (AMB) [facility] Routine 01/16/2024 9:31 AM SIDE STITCHER Type 2 diabetes mellitus without complication, without [...] Results * AUDIOLOGY/TYMPANOMETRY ORDER (03/18/2024 9:00 AM SIDE STITCHER) Rupesh Christina MckinneyMeredith - 03/18/2024 9:23 AM SIDE STITCHER History: Mehnaz Pickard arrived for a hearing [...] RT if hearing loss persists. Meredith Esparza. [facility]A Clinical Sorting Cows Worker [facility]Department of [facility]ol[facility] [address] [place] [address] Christina Harper AUDIOLOGY SERVICES O RDERABLES * (ABNORMAL) COMPREHENSIVE METABOLIC PANEL (01/16/2024 9:56 AM SIDE STITCHER) BUN 15 7 - 26 mg/dL 01/16/2024 11:21 AM [facility] Creatinine 0.97(H) 0.56 - 0.96 mg/dL 01/16/2024 11:21 AM [facility] Sodium 144 136 - 145 mmol/L 01/16/2024 11:21 AM [facility] Potassium 3.8 3.5 - 4.5 mmol/L 01/16/2024 11:21 AM [facility] Chloride 108(H) 98 - 107 mmol/L 01/16/2024 11:21 AM [facility] CO2 24 22 - 29 mmol/L 01/16/2024 11:21 AM [facility] Glucose 111(H) 70 - 99 mg/dL 01/16/2024 11:21 AM [facility] Calcium 8.8 8.4 - 10.2 mg/dL 01/16/2024 11:21 AM [facility] Protein Total 7.3 6.0 - 8.3 g/dL 01/16/2024 11:21 AM [facility] Albumin 3.8 3.4 - 5.0 g/dL 01/16/2024 11:21 AM [facility] Bilirubin Total 0.3 0.2 - 1.2 mg/dL 01/16/2024 11:21 AM [facility] Alkaline Phosphatase 82 40 - 150 U/L 01/16/2024 11:21 AM [facility] ALT 15 5 - 55 U/L 01/16/2024 11:21 AM [facility] AST 16 5 - 34 U/L 01/16/2024 11:21 AM [facility] Anion Gap 12 6 - 16 01/16/2024 11:21 AM [facility] BUN/Creatinine Ratio 15 7 - 23 01/16/2024 11:21 AM [facility] Osmolality Calculated 300(H) 275 - 295 mOsm/kg 01/16/2024 11:21 AM [facility] Albumin/Globulin Ratio 1.1 1.1 - 2.3 01/16/2024 11:21 AM [facility] eGFR by CKD-EPI 64(L) >=90 mL/min/1.7 3 m2 01/16/2024 11:21 AM [facility] Blood BLOOD SPECIMEN / Unknown Lab Venipuncture / Unknown 01/16/2024 9:56 AM SIDE STITCHER 01/16/2024 10:14 AM SIDE STITCHER Deepali Vega DO LAB - CHEMISTRY ORDE RABLES [facility] [address] [place] [address], [facility] [phone] * HEMOGLOBIN A1C - POINT OF CARE (AMB) [facility] (01/16/2024 9:31 AM SIDE STITCHER) Hemoglobin A1c POCT 6.0 % [address] BLOOD SPECIMEN / Unknown 01/16/2024 9:31 AM SIDE STITCHER Deepali Vega DO LAB - POINT OF CARE ORDERABLES [place] [address] [facility] [place] [phone], [facility] [phone] * MICROALB/CREAT RATIO URINE RANDOM PANEL (06/11/2019 12:46 PM CDT) Pathologist [facility] Albumin Random Urine 5.0 Not Established mcg/mL 06/11/2019 2:46 PM CDT [facility] Creatinine Urine 134 Not Established mg/dL 06/11/2019 2:46 PM CDT [facility] Comment:Result obtained by d lazaro. Urine Albumin/Creati nine Ratio 4 <30 mg/g 06/11/2019 2:46 PM CDT [facility] Urine URINE SPECIMEN OBTAINED BY CLEAN CATCH PROCEDURE / Unknown Collection / Unknown 06/11/2019 12:46 PM CDT 06/11/2019 12:59 PM CDT Magaly Bautista MD LAB - URINE CH EMISTRY ORDERABLES [address] [phone] * HEPATITIS C AB SCREEN RFLX NAAT QUANT (06/06/2018 3:14 PM CDT) [facility] Hepatitis C Antibody Non-react adela Non-reac tive 06/06/2018 4:14 PM CDT [facility] Comment: Hepatitis C Antibody screen indicates [...] Lundy MD LAB - CHEMISTRY ALEX DUNNE [address] [phone] from Last 3 Months or Most Recently Relevant to Health Maintenance Advance Directives * Full Code (Latest Code Status on File) Date Activated Date Inactivated Comments 08/22/2023 12:58 PM 08/24/2023 5:22 PM Care Teams Husbandry Technician Relationship Specialty Start Date End Date Terri Lopez PA-C [address] [place] [address] [address] [place] [phone] PCP - General 05/20/22 Tawny Montano MD [address] [place] [address] Internal Medicine 08/20/21
--- OUTSIDE RECORDS SUMMARY | 2024-05-01 23:26 | XMS_ITS | Encounter Summary ---
Author Organization [facility] Address [facility] [place] [address] Care Team Providers Care Agricultural Agent Name Role Phone Startex, Guido Birch Primary Care Provider [phone] Rodney Acosta MD Primary Care Provider Guido Donovan Primary Care Provider [phone] Guido Donovan Primary Care Provider [phone] Tawny Montano MD Unavailable Terri Lopez PA-C Primary Care Provider [phone] Encounter Details Date Type Department Care Team (Late st Contact Info) Description 10/22/2018 Telephone [facility] [address] [place] [address] Rodney Acosta MD [address] [place] [address] [place] [address] Social History Tobacco Use Types Packs/Day Years [...] requesting a Med refill. Drug type:TRADJENTA Pharmacy:[facility], [address], [place] [address] Patient call back number: [phone] . Following Guideline rules, we informed the patient clinic will contact them within 24 business hours. documented in this encounter Plan of Treatment Upcoming Encounters Date Type Department Care Team (Late st Contact Info) Description 06/04/2024 9:00 AM CDT Office Visit [facility] [address] [place] [phone] Karlos Varghese OD [facility]5 [place] [phone] 07/23/2024 9:00 AM CDT Office [facility] Endocrinology [address] [place] [phone] Deepali Vega DO [address] [place] [address] 2 [place] [phone] 09/18/2024 9:00 AM CDT Testing Visit [facility] [address] [place] [phone] Christina Mckinney, Meredith [address] [place] [address] [address] [place] [address] 09/18/2024 9:45 AM CDT Office Visit [facility] [address] [place] [phone] Spencer Coronado MD [address] [place] [address] [place] [address] documented as of this encounter Visit Diagnoses Not on filedocumented in this encounter Care Teams Agricultural Agent Relationship Specialty Start Date End Date Guido Donovan [address] [place] [phone] PCP - General 02/16/18 06/10/19 Rodney Acosta MD [address] [address] PCP - General Endocrinology 06/11/19 06/17/19 Guido Donovan [address] [place] [phone] PCP - General 06/18/19 07/08/20 Guido Donovan [address] [place] [phone] PCP - General 10/28/20 05/19/22 Terri Lopez PA-C [address] [phone] PCP - General 05/20/22 [place] [address] [address] Internal Medicine 08/20/21 documented as of this encounter
--- OUTSIDE RECORDS SUMMARY | 2024-05-01 23:26 | XMS_ITS | Clinical Summary ---
Author Organization [facility] [place] [address] [facility] Address [address] [place] [address] Care Team Providers Care Table Tender Sludge Name Role Phone Terri Lopez Primary Care Provider [phone] Gary Deepali Page DO Unavailable [phone] Allergies Active Allergy Reactions Criticality Noted Date Comments Zfiguxkaru-Zjratibp-Re rmoterol Headache Low 06/07/2023 Prednisone Other (See comments) Low 01/13/2022 Hyperglycemia: ended up in hospital last time it was taken Medications blood glucose diagnostic strip Active lancing device/lancets ([email or web address] DELICA LANC DEVICE MISC) Active blood-glucose [place] [facility] [place] dulaglutide (TRULICITY) 0.75 mg/0.5 mL pen [...] 03/17/2024 Assessment & Plan (03/17/2024 7:24 PM LUMP INSPECTOR): Encouraged healthy lifestyle, good nutrition and exercise. Encouraged Calcium and Vitamin D and weight bearing exercise for bone health. Reviewed immunizations Reviewed age appropirate screenings. Status post complete thyroidectomy 09/18/2023 Overview (09/18/2023): 08/2023 -- Multinodular goiter removed at [facility] Dr. Lemus Started levothyroxine 88mcg PTH >4 post op Assessment & Plan (09/18/2023 12:49 PM CDT): 08/2023 -- Multinodular goiter removed at [facility] Dr. Lemus Started levothyroxine 88mcg PTH >4 post op Endo is monitoring her thyroid Multiple pulmonary nodules 06/15/2023 History of tobacco abuse 03/20/2023 Assessment & Plan (03/20/2023 9:36 AM LUMP INSPECTOR): Discussed with patient Lung Cancer screening [...] 11/16/2022 Assessment & Plan (03/08/2024 8:38 AM LUMP INSPECTOR): Discussed the patient's BMI. The BMI is above average. BMI management plan is completed. BMI Follow-up includes: nutrition counseling, exercise counseling and education provided. Assessment & Plan (09/18/2023 12:49 PM CDT): Discussed the patient's BMI. The BMI is above average. BMI management plan is completed. BMI Follow-up includes: nutrition counseling, exercise counseling and education provided. Assessment & Plan (03/20/2023 8:41 AM LUMP INSPECTOR): Discussed the patient's BMI. The BMI [...] 11/16/2022 Assessment & Plan (03/08/2024 8:38 AM LUMP INSPECTOR): Discussed the patient's BMI. The BMI is above average. BMI management plan is completed. BMI Follow-up includes: nutrition counseling, exercise counseling and education provided. Assessment & Plan (09/18/2023 12:49 PM CDT): Discussed the patient's BMI. The BMI is above average. BMI management plan is completed. BMI Follow-up includes: nutrition counseling, exercise counseling and education provided. Assessment & Plan (03/20/2023 8:41 AM LUMP INSPECTOR): Discussed the patient's BMI. The BMI [...] 10/14/2020 Assessment & Plan (03/17/2024 7:24 PM LUMP INSPECTOR): Supplement Assessment & Plan (09/18/2023 12:49 PM CDT): Supplement Assessment & Plan (03/20/2023 9:33 AM LUMP INSPECTOR): Supplement Assessment & Plan (11/16/2022 7:19 PM CDT): Supplement vitamin-D Assessment & Plan (08/17/2021 8:58 AM CDT): Supplement ARLYN (obstructive sleep apnea) 08/15/2020 Assessment & Plan (03/17/2024 7:24 PM LUMP INSPECTOR): Patient refuses to use the CPAP. [...] assistance Assessment & Plan (03/20/2023 9:33 AM LUMP INSPECTOR): Patient has known ARLYN. Has CPAP [...] using her CPAP every night to avoid prison sequela. Encouraged to keep followup with sleep COPD (chronic obstructive pulmonary disease) 02/2020 Assessment & Plan (03/17/2024 7:22 PM LUMP INSPECTOR): Continue per Dr. Castro. Currently on [...] evaluation Assessment & Plan (03/20/2023 9:34 AM LUMP INSPECTOR): Patient has COPD. She has been [...] 02/2020 Assessment & Plan (03/17/2024 7:23 PM LUMP INSPECTOR): Stressed importance of continued A1c control to minimize the rat exterminator effects of diabetes. Bring accuchecks to office [...] labs as needed. Managed by endocrinology at [facility]. Assessment & Plan (09/18/2023 12:48 PM CDT): Stressed importance of continued A1c control to minimize the rat exterminator effects of diabetes. Bring accuchecks to office [...] 1 g daily. Diabetes is managed by [facility] endocrinology Assessment & Plan (03/20/2023 9:32 AM LUMP INSPECTOR): Stressed importance of continued A1c control to minimize the rat exterminator effects of diabetes. Bring accuchecks to office [...] needed. Continue diabetes management per Endocrinology at [facility]. Continue atorvastatin 10 mg Assessment & [...] of continued A1c control to minimize the prison effects of diabetes. Bring accuchecks to office when instructed to do so. Check A1c about every 3-6 months. Take medication as prescribed. Get annual eye exam. Encouraged KASSIE/Statin if able to tolerate. Encouraged weight control and encouraged diabetic diet and exercise. Continue per Endo at [facility]. Assessment & Plan (08/17/2021 8:54 AM CDT): Encouraged patient to follow low fat/low chol diet like the Mediterranean diet. Increase good fats in the diet. Increase exercise. Monitor labs as needed. Continue statin Stressed importance of continued A1c control to minimize the prison effects of diabetes. Bring accuchecks to office when instructed to do so. Check A1c about every 3-6 months. Take medication as prescribed. Get annual eye exam. Encouraged KASSIE/Statin if able to tolerate. Encouraged weight control and encouraged diabetic diet and exercise. Continue per Endo at [facility]. Assessment & Plan (05/07/2021 9:30 PM CDT): Encouraged patient to follow low fat/low chol diet like the Mediterranean diet. Increase good fats in the diet. Increase exercise. Monitor labs as needed. Continue statin Assessment & Plan (10/25/2020 10:38 AM CDT): Stressed importance of continued A1c control to minimize the prison effects of diabetes. Bring accuchecks to office [...] 08/13/2020 Assessment & Plan (03/17/2024 7:23 PM LUMP INSPECTOR): Bp is stable/in acceptable range for any co-morbidities. Encouraged to limit sodium intake and exercise for weight control. Continue olmesartan and hydrochlorothiazide Assessment & Plan (09/18/2023 12:23 PM CDT): Bp is stable/in acceptable range for any co-morbidities. Encouraged to limit sodium intake and exercise for weight control. Continue olmesartan hydrochlorothiazide Assessment & Plan (03/20/2023 9:34 AM LUMP INSPECTOR): Bp is stable/in acceptable range for any co-morbidities. Encouraged to limit sodium intake and exercise for weight control. Continue olmesartan hydrochlorothiazide Assessment & Plan (11/16/2022 7:19 PM CDT): Bp is stable/in acceptable range for any co-morbidities. Encouraged to limit sodium intake and exercise for weight control. Continue olmesartan hydrochlorothiazide. Stressed importance of continued A1c control to minimize the rat exterminator effects of diabetes. Bring accuchecks to office [...] 03/17/2024 Assessment & Plan (03/20/2023 9:36 AM LUMP INSPECTOR): Encouraged bone density to evaluate for osteoporosis Breast cancer screening by mammogram 03/20/2023 03/17/2024 Assessment & Plan (03/20/2023 9:36 AM LUMP INSPECTOR): Mammogram order provided she will be [...] CDT): Patient follows with Dr. Coronado at [facility]. There is concern for possible CSF [...] 022 Assessment & Plan (04/16/2021 9:09 AM LUMP INSPECTOR): Obesity is unchanged. Discussed the patient's [...] provided. Assessment & Plan (04/16/2021 9:09 AM LUMP INSPECTOR): Obesity is unchanged. Discussed the patient's [...] 03/17/2024 Assessment & Plan (03/20/2023 9:35 AM LUMP INSPECTOR): Probably multifactorial. Check labs and followup [...] 09/18/2023 Overview (08/15/2020): 2019 Dr. Acosta at [facility] -- nodules Assessment & Plan (08/15/2020 8:43 PM CDT): Dr. Acosta manages thyroid levels BMI 40.0-44.9, adult 08/13/2020 021 Assessment & Plan (08/13/2020 10:51 AM CDT): Obesity is unchanged. Discussed the patient's BMI. The BMI is above average. BMI management plan is completed. BMI Follow-up includes: nutrition counseling, exercise counseling and education provided. Morbid obesity with BMI of 4 0.0-44.9, adult ([facility] 08/13/2020 10/14/2020 Assessment & Plan (08/13/2020 10:52 AM CDT): Obesity is unchanged. Discussed the patient's BMI. The BMI is above average. BMI management plan is completed. BMI Follow-up includes: nutrition counseling, exercise counseling and education provided. History of 2019 novel sam virus disease (COVID-19) 08/13/2020 04/16/2021 Encounters Date Type Department Care Team Description 03/18/2024 Orders Only [address] [place] [address] Provider, MD Lee 03/08/2024 8:30 AM LUMP INSPECTOR Office Visit [address] [place] [address] Terri Lopez PA Annual physical [...] on file Legal Sex Female 6:13 PM LUMP INSPECTOR Gender Identity Female 11/09/2020 12:04 PM [...] Comments Blood Pressure 126/74 03/08/2024 8:35 AM LUMP INSPECTOR Pulse 75 03/08/2024 8:35 AM LUMP INSPECTOR Temperature 36.7 C (98.1 F) 03/08/2024 8:35 AM LUMP INSPECTOR Respiratory Rate 18 01/04/2024 8:41 AM LUMP INSPECTOR Oxygen Saturation 96% 03/08/2024 8:35 AM LUMP INSPECTOR Inhaled Oxygen Concentration - - Weight 110.2 kg (243 lb) 03/08/2024 8:35 AM LUMP INSPECTOR Height 162.6 cm (5' 4 ) 03/08/2024 8:35 AM LUMP INSPECTOR Body Mass Index 41.71 03/08/2024 8:35 AM LUMP INSPECTOR Plan of Treatment Health Maintenance Due [...] DIABETES EYE EXAM Routine 03/18/2024 8:57 AM LUMP INSPECTOR SCREENING MAMMOGRAM BILATERAL W LONNIE Schedule Routine, Read Routine (OP Routine) 12/20/2023 9:17 AM LUMP INSPECTOR Breast cancer screening by mammogram CT CHEST WO CONTRAST F/U LUNG SCREEN PROTOCOL Schedule Routine, Read Routine (OP Routine) 10/26/2023 8:52 AM CDT Pulmonary nodules HEMOGLOBIN A1C Routine 07/31/2023 12:44 PM CDT DEXA AXIAL SKELETON BONE DENSITY 1 OR MORE SITES Schedule Routine, Read Routine (OP Routine) 04/24/2023 8:52 AM CDT Menopause LIPID PANEL Routine 04/18/2023 10:49 AM LUMP INSPECTOR COMPREHENSIVE METABOLIC PANEL Routine 10/11/2021 8:43 AM CDT Type 2 diabetes mellitus with hyperlipidemia (HCC) COLONOSCOPY Routine 05/03/2021 from Last 3 Months or Most Recently Relevant to Health Maintenance Results * (ABNORMAL) DIABETES EYE EXAM (03/18/2024 8:57 AM LUMP INSPECTOR) SCRIBED DIABETIC DILATED EYE EXAM Abnormal us Historical Provider HEALTH MAINTENANCE Edited Result - Final * Screening Mammogram Bilateral W Lonnie (12/20/2023 9:17 AM LUMP INSPECTOR) Anatomical Region Laterality Modality Breast Bilateral Mammography Impressions 12/20/2023 9:24 AM LUMP INSPECTOR BI-RADS ATLAS category (overall): 2 - Benign There is no mammographic evidence of malignancy. A 1 year screening mammogram is recommended. The patient has been or will be contacted. We recommend annual screening mammography for women at average risk of breast cancer beginning at age 40, based on guidelines of the [place] [employer] (ACR Practice Parameter for the Performance of Screening and Diagnostic Mammography) and [employer]. For women with and elevated risk of breast cancer, please refer to the ACR Practice Parameter for specific screening recommendations. The patient will be entered into a reminder system with a target due date of 1 year for her next screening exam. Narrative 12/20/2023 9:24 AM LUMP INSPECTOR Screening Mammogram Bilateral W Lonnie: 12/20/23 [...] David Sheehan D.O. PS: PS Report ID: [id number] Reading Location: [place] [address] Procedure Note David Sheehan, - 10/26/2023 EXAM [...] David Sheehan D.O. PS: PS Report ID: [id number] Reading Location: [id number] Terri HODGES IMG CT PROCEDURES Final Re [...] F with given history of: menopause, menopause Child Welfare Assistant/Model: yourdelivery A (S/N [id number]) CLINICAL INFORMATION: Current height: 64 inches Maximum [...] Will Ibrahim M.D. MF: CHANDA Report ID: [id number] Reading Location: [place] [address] Procedure Note Will Ibrahim MD - 04/24/2023 EXAM DESCRIPTION: DEXA AXIAL SKELETON BONE DENSITY 1 OR MORE SITES REASON FOR STUDY: 67 y/o year old F with given history of: menopause, menopause Child Welfare Assistant/Model: yourdelivery A (S/N [id number]) CLINICAL INFORMATION: Current height: 64 inches Maximum [...] Will Ibrahim M.D. MF: CHANDA Report ID: [id number] Reading Location: [place] [address] Terri HODGES IMGuanako DXA PROCEDURES Final R esult * HM LIPID PANEL (04/18/2023 10:49 AM LUMP INSPECTOR) [facility] SCRIBED Cholesterol, Total 145 SCRIBED Triglycerides 86 SCRIBED HDL 51 SCRIBED LDL 77 Historical Provider HEALTH MAINTENANCE Edited Result - Final * (ABNORMAL) Comprehensive metabolic panel (10/11/2021 8:43 AM CDT) Glucose 139(H) 65 - 99 mg/dL [facility] Comment: Fasting reference interval For someone without known diabetes, a glucose value >125 mg/dL indicates that they may have diabetes and this should be confirmed with a follow-up test. BUN 17 7 - 25 mg/dL [facility] Creatinine 0.92 0.50 - 1.05 mg/dL [facility] eGFR 69 > OR = 60 mL/min/1. 73m2 [facility] Comment: The eGFR is based on the CKD-EPI 2020 equation. To calculate the new eGFR from a previous Creatinine or Cystatin C result, go to https://www.kidney.org/professionals/ kdoqi/gfr%5Fcalculator BUN/creat ratio NOT APPLICABLE - (calc) [facility] Sodium 144 135 - 146 mmol/L [facility] Potassium, pl 4.0 3.5 - 5.3 mmol/L [facility] Chloride 106 98 - 110 mmol/L [facility] CO2 26 20 - 32 mmol/L [facility] Calcium 10.0 8.6 - 10.4 mg/dL [facility] Protein, sr 7.0 6.1 - 8.1 g/dL [facility] Albumin 4.2 3.6 - 5.1 g/dL [facility] GLOBULIN 2.8 1.9 - 3.7 g/dL (calc) [facility] Alb/glob ratio 1.5 1.0 - 2.5 (calc) [facility] Bilirubin, total 0.3 0.2 - 1.2 mg/dL [facility] Alk phos 81 37 - 153 U/L [facility] AST 12 10 - 35 U/L [facility] ALT (SGPT) 10 6 - 29 U/L [facility] Blood specimen (specimen) 10/11/2021 8:43 AM CDT 10/11/2021 8:47 AM CDT Narrative [facility] - 10/12/2021 4:22 AM CDT FASTING:YES PATIENT UNABLE TO VOID; ADVISED TO RETURN FOR COLLECTION. FASTING: YES Terri HODGES LAB BLOOD ORDERABLES Final Result [facility] [address] [facility] [place] [address] * COLONOSCOPY (05/03/2021) Scribed Colonoscopy Normal Narrative Terri Lopez PA - 05/03/2021 Dr. Silverio. Normal colonoscopy -- repeat 10 years. Historical Provider MD HEALTH MAINTENANCE Final Result from Last 3 Months or Most Recently Relevant to Health Maintenance Insurance [employer] ACCESS Care Teams Table Tender Sludge Relationship Specialty Start Date End Date Terri Lopez PA [address] [place], [place] [id number] PCP - General Internal Medicine 07/15/20 Deepali Vega DO [address] [place] [address] Referring Physician Internal Medicine 08/01/22
--- OUTSIDE RECORDS SUMMARY | 2024-05-01 23:26 | XMS_ITS | Encounter Summary ---
Author Organization [facility] Address [address] [place] [address] Care Team Providers Care Health Data Analyst Name Role Phone Tawny Montano MD Unavailable [phone] Terri Lopez PA-C Primary Care Provider [phone] Reason for Visit * Reason Comments MEDICATION REFILL Encounter Details Date Type Department Care Team (Late Contact Info) Description 01/19/2024 Refill [facility] - Endocrinology [address] [place] [address], [facility] [place] [phone] Tina Nuno MD [address] [place] [address] [place] [phone] MEDICATION REFILL Social History Tobacco Use Types [...] Visit [facility] - Ophthalmology [address] [place] [phone] Karlos Varghese OD [address] [place] [address] 07/23/2024 9:00 AM CDT Office Visit [facility] - Endocrinology [address] [place] [phone] Deepali Vega, [address] [facility] [address] [place] [phone] 09/18/2024 9:00 AM CDT Testing Visit [facility] - ENT [address] [place] [phone] Christina Mckinney AuD [address] [place] [address] [address] [place] [address] 09/18/2024 9:45 AM CDT Office Visit [facility] - ENT [address] [place] [phone] Spencer Coronado MD [address] [place] [address] [address] [place] [address] documented as of this encounter Visit Diagnoses Diagnosis Type 2 diabetes mellitus without complication, without long-term current use of insulin (HCC) documented in this encounter Care Teams Health Data Analyst Relationship Specialty Start Date End Date Terri Lopez PA-C [facility] [address] PCP - General 05/20/22 [place] [address] [address] Internal Medicine 08/20/21 documented as of this encounter
--- OUTSIDE RECORDS SUMMARY | 2024-05-01 23:26 | XMS_ITS | Referral Summary ---
Author Organization [facility] [address] [place] [address] [place] [phone] Care Team Providers Care Oracle Programmer Analyst Name Role Phone Terri Lopez Primary Care Provider [phone] Deepali Vega DO Unavailable [phone] Encounters Date Type Department Care Team Description 03/18/2024 Orders Only [facility] Family Medicine [address] [place] [address] [place] [phone] ProviderLee MD 03/08/2024 8:30 AM WATER TREATMENT OPERATOR Office Visit [address] [place] [phone] Terri Lopez PA Annual physical exam (Primary Dx); Vitamin D deficiency; ARLYN (obstructive sleep apnea); Hypertension associated with diabetes (HCC); Type 2 diabetes mellitus with hyperlipidemia (HCC); Chronic obstructive pulmonary disease, unspecified COPD type (HCC); BMI 40.0-44.9, adult (HCC); Morbid obesity (HCC) from Last 3 Months Allergies Active Allergy Reactions Criticality Noted Date Comments Tsvdwiazxr-Qxszhhsg-Gr rmoterol Headache Low 06/07/2023 Prednisone Other (See [...] 03/17/2024 Assessment & Plan (03/17/2024 7:24 PM WATER TREATMENT OPERATOR): Encouraged healthy lifestyle, good nutrition and exercise. Encouraged Calcium and Vitamin D and weight bearing exercise for bone health. Reviewed immunizations Reviewed age appropirate screenings. Status post complete thyroidectomy 09/18/2023 Overview (09/18/2023): 08/2023 -- Multinodular goiter removed at [facility] Dr. Lemus Started levothyroxine 88mcg PTH >4 post op Assessment & Plan (09/18/2023 12:49 PM CDT): 08/2023 -- Multinodular goiter removed at [facility] Dr. Lemus Started levothyroxine 88mcg PTH >4 post op Endo is monitoring her thyroid Multiple pulmonary nodules 06/15/2023 History of tobacco abuse 03/20/2023 Assessment & Plan (03/20/2023 9:36 AM WATER TREATMENT OPERATOR): Discussed with patient Lung Cancer screening options [...] 11/16/2022 Assessment & Plan (03/08/2024 8:38 AM WATER TREATMENT OPERATOR): Discussed the patient's BMI. The BMI is above average. BMI management plan is completed. BMI Follow-up includes: nutrition counseling, exercise counseling and education provided. Assessment & Plan (09/18/2023 12:49 PM CDT): Discussed the patient's BMI. The BMI is above average. BMI management plan is completed. BMI Follow-up includes: nutrition counseling, exercise counseling and education provided. Assessment & Plan (03/20/2023 8:41 AM WATER TREATMENT OPERATOR): Discussed the patient's BMI. The BMI is [...] 11/16/2022 Assessment & Plan (03/08/2024 8:38 AM WATER TREATMENT OPERATOR): Discussed the patient's BMI. The BMI is above average. BMI management plan is completed. BMI Follow-up includes: nutrition counseling, exercise counseling and education provided. Assessment & Plan (09/18/2023 12:49 PM CDT): Discussed the patient's BMI. The BMI is above average. BMI management plan is completed. BMI Follow-up includes: nutrition counseling, exercise counseling and education provided. Assessment & Plan (03/20/2023 8:41 AM WATER TREATMENT OPERATOR): Discussed the patient's BMI. The BMI is [...] 10/14/2020 Assessment & Plan (03/17/2024 7:24 PM WATER TREATMENT OPERATOR): Supplement Assessment & Plan (09/18/2023 12:49 PM CDT): Supplement Assessment & Plan (03/20/2023 9:33 AM WATER TREATMENT OPERATOR): Supplement Assessment & Plan (11/16/2022 7:19 PM CDT): Supplement vitamin-D Assessment & Plan (08/17/2021 8:58 AM CDT): Supplement ARLYN (obstructive sleep apnea) 08/15/2020 Assessment & Plan (03/17/2024 7:24 PM WATER TREATMENT OPERATOR): Patient refuses to use the CPAP. Reviewed [...] assistance Assessment & Plan (03/20/2023 9:33 AM WATER TREATMENT OPERATOR): Patient has known ARLYN. Has CPAP but [...] using her CPAP every night to avoid terminal carman sequela. Encouraged to keep followup with sleep COPD (chronic obstructive pulmonary disease) 02/2020 Assessment & Plan (03/17/2024 7:22 PM WATER TREATMENT OPERATOR): Continue per Dr. Castro. Currently on albuterol [...] evaluation Assessment & Plan (03/20/2023 9:34 AM WATER TREATMENT OPERATOR): Patient has COPD. She has been resistant [...] 02/2020 Assessment & Plan (03/17/2024 7:23 PM WATER TREATMENT OPERATOR): Stressed importance of continued A1c control to minimize the [place] [facility] effects of diabetes. Bring accuchecks to office [...] labs as needed. Managed by endocrinology at [facility]. Assessment & Plan (09/18/2023 12:48 PM CDT): Stressed importance of continued A1c control to minimize the [place] effects of diabetes. Bring accuchecks to office [...] 1 g daily. Diabetes is managed by [facility] endocrinology Assessment & Plan (03/20/2023 9:32 AM WATER TREATMENT OPERATOR): Stressed importance of continued A1c control to minimize the [facility] effects of diabetes. Bring accuchecks to office [...] needed. Continue diabetes management per Endocrinology at [facility]. Continue atorvastatin 10 mg Assessment & [...] of continued A1c control to minimize the terminal carman effects of diabetes. Bring accuchecks to office when instructed to do so. Check A1c about every 3-6 months. Take medication as prescribed. Get annual eye exam. Encouraged KASSIE/Statin if able to tolerate. Encouraged weight control and encouraged diabetic diet and exercise. Continue per Endo at [facility]. Assessment & Plan (08/17/2021 8:54 AM CDT): Encouraged patient to follow low fat/low chol diet like the Mediterranean diet. Increase good fats in the diet. Increase exercise. Monitor labs as needed. Continue statin Stressed importance of continued A1c control to minimize the terminal carman effects of diabetes. Bring accuchecks to office when instructed to do so. Check A1c about every 3-6 months. Take medication as prescribed. Get annual eye exam. Encouraged KASSIE/Statin if able to tolerate. Encouraged weight control and encouraged diabetic diet and exercise. Continue per Endo at [facility]. Assessment & Plan (05/07/2021 9:30 PM CDT): Encouraged patient to follow low fat/low chol diet like the Mediterranean diet. Increase good fats in the diet. Increase exercise. Monitor labs as needed. Continue statin Assessment & Plan (10/25/2020 10:38 AM CDT): Stressed importance of continued A1c control to minimize the [facility] effects of diabetes. Bring accuchecks to office [...] 08/13/2020 Assessment & Plan (03/17/2024 7:23 PM WATER TREATMENT OPERATOR): Bp is stable/in acceptable range for any co-morbidities. Encouraged to limit sodium intake and exercise for weight control. Continue olmesartan and hydrochlorothiazide Assessment & Plan (09/18/2023 12:23 PM CDT): Bp is stable/in acceptable range for any co-morbidities. Encouraged to limit sodium intake and exercise for weight control. Continue olmesartan hydrochlorothiazide Assessment & Plan (03/20/2023 9:34 AM WATER TREATMENT OPERATOR): Bp is stable/in acceptable range for any co-morbidities. Encouraged to limit sodium intake and exercise for weight control. Continue olmesartan hydrochlorothiazide Assessment & Plan (11/16/2022 7:19 PM CDT): Bp is stable/in acceptable range for any co-morbidities. Encouraged to limit sodium intake and exercise for weight control. Continue olmesartan hydrochlorothiazide. Stressed importance of continued A1c control to minimize the terminal carman effects of diabetes. Bring accuchecks to office [...] 03/17/2024 Assessment & Plan (03/20/2023 9:36 AM WATER TREATMENT OPERATOR): Encouraged bone density to evaluate for osteoporosis Breast cancer screening by mammogram 03/20/2023 03/17/2024 Assessment & Plan (03/20/2023 9:36 AM WATER TREATMENT OPERATOR): Mammogram order provided she will be due [...] CDT): Patient follows with Dr. Coronado at [facility]. There is concern for possible CSF [...] 022 Assessment & Plan (04/16/2021 9:09 AM WATER TREATMENT OPERATOR): Obesity is unchanged. Discussed the patient's BMI. [...] provided. Assessment & Plan (04/16/2021 9:09 AM WATER TREATMENT OPERATOR): Obesity is unchanged. Discussed the patient's BMI. [...] 03/17/2024 Assessment & Plan (03/20/2023 9:35 AM WATER TREATMENT OPERATOR): Probably multifactorial. Check labs and followup to [...] 09/18/2023 Overview (08/15/2020): 2019 Dr. Acosta at [facility] -- nodules Assessment & Plan (08/15/2020 8:43 PM CDT): Dr. Acosta manages thyroid levels BMI 40.0-44.9, adult 08/13/2020 021 Assessment & Plan (08/13/2020 10:51 AM CDT): Obesity is unchanged. Discussed the patient's BMI. The BMI is above average. BMI management plan is completed. BMI Follow-up includes: nutrition counseling, exercise counseling and education provided. Morbid obesity with BMI of 4 0.0-44.9, adult ([facility]) 08/13/2020 10/14/2020 Assessment & Plan [...] on file Legal Sex Female 6:13 PM WATER TREATMENT OPERATOR Gender Identity Female 11/09/2020 12:04 PM CDT Sexual Orientation Straight 11/09/2020 12 :04 PM CDT Last Filed Vital Signs Vital Sign Reading Time Taken Comments Blood Pressure 126/74 03/08/2024 8:35 AM WATER TREATMENT OPERATOR Pulse 75 03/08/2024 8:35 AM WATER TREATMENT OPERATOR Temperature 36.7 C (98.1 F) 03/08/2024 8:35 AM WATER TREATMENT OPERATOR Respiratory Rate 18 01/04/2024 8:41 AM WATER TREATMENT OPERATOR Oxygen Saturation 96% 03/08/2024 8:35 AM WATER TREATMENT OPERATOR Inhaled Oxygen Concentration - - Weight 110.2 kg (243 lb) 03/08/2024 8:35 AM WATER TREATMENT OPERATOR Height 162.6 cm (5' 4 ) 03/08/2024 8:35 AM WATER TREATMENT OPERATOR Body Mass Index 41.71 03/08/2024 8:35 AM WATER TREATMENT OPERATOR Plan of Treatment Not on file Procedures Procedure Name Priority Date/Time Associated Diagnosis Comments DIABETES EYE EXAM Routine 03/18/2024 8:57 AM WATER TREATMENT OPERATOR SCREENING MAMMOGRAM BILATERAL W LONNIE Schedule Routine, Read Routine (OP Routine) 12/20/2023 9:17 AM WATER TREATMENT OPERATOR Breast cancer screening by mammogram CT CHEST WO CONTRAST F/U LUNG SCREEN PROTOCOL Schedule Routine, Read Routine (OP Routine) 10/26/2023 8:52 AM CDT Pulmonary nodules HEMOGLOBIN A1C Routine 07/31/2023 12:44 PM CDT DEXA AXIAL SKELETON BONE DENSITY 1 OR MORE SITES Schedule Routine, Read Routine (OP Routine) 04/24/2023 8:52 AM CDT Menopause LIPID PANEL Routine 04/18/2023 10:49 AM WATER TREATMENT OPERATOR COMPREHENSIVE METABOLIC PANEL Routine 10/11/2021 8:43 AM CDT Type 2 diabetes mellitus with hyperlipidemia (HCC) COLONOSCOPY Routine 05/03/2021 from Last 3 Months or Most Recently Relevant to Health Maintenance Results * (ABNORMAL) DIABETES EYE EXAM (03/18/2024 8:57 AM WATER TREATMENT OPERATOR) SCRIBED DIABETIC DILATED EYE EXAM Abnormal us Historical Provider [facility] MAINTENANCE Edited Result - Final * Screening Mammogram Bilateral W Lonnie (12/20/2023 9:17 AM WATER TREATMENT OPERATOR) Anatomical Region Laterality Modality Breast Bilateral Mammography Impressions 12/20/2023 9:24 AM WATER TREATMENT OPERATOR BI-RADS ATLAS category (overall): 2 - Benign There is no mammographic evidence of malignancy. A 1 year screening mammogram is recommended. The patient has been or will be contacted. We recommend annual screening mammography for women at average risk of breast cancer beginning at age 40, based on guidelines of the [employer] (ACR Practice Parameter for the Performance of Screening and Diagnostic Mammography) and [employer]. For women with and elevated risk of breast cancer, please refer to the ACR Practice Parameter for specific screening recommendations. The patient will be entered into a reminder system with a target due date of 1 year for her next screening exam. Narrative 12/20/2023 9:24 AM WATER TREATMENT OPERATOR Screening Mammogram Bilateral W Lonnie: 12/20/23 The [...] David Sheehan D.O. PS: PS Report ID: [id number] Reading Location: [id number] Procedure Note David Sheehan, DO - 10/26/2023 [...] David Sheehan D.O. PS: PS Report ID: [id number] Reading Location: [place] [address] PROCEDURES Final Re [...] F with given history of: menopause, menopause Back Digger Operator/Model: [employer] A (S/N [id number]) CLINICAL INFORMATION: Current height: 64 inches Maximum [...] Will Ibrahim M.D. 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 MF: CHANDA Report ID: [id number] Reading Location: [place] [address] Terri HODGES IMGuanako DXA PROCEDURES Final R esult * HM LIPID PANEL (04/18/2023 10:49 AM WATER TREATMENT OPERATOR) Pathologist [facility] SCRIBED Cholesterol, Total 145 SCRIBED Triglycerides 86 SCRIBED HDL 51 SCRIBED LDL 77 Historical Provider HEALTH MAINTENANCE Edited Result - Final * (ABNORMAL) Comprehensive metabolic panel (10/11/2021 8:43 AM CDT) Pathologist [facility] Glucose 139(H) 65 - 99 mg/dL [facility] Comment: Fasting reference interval For someone without known diabetes, a glucose value >125 mg/dL indicates that they may have diabetes and this should be confirmed with a follow-up test. BUN 17 7 - 25 mg/dL [facility] Creatinine 0.92 0.50 - 1.05 mg/dL [facility] eGFR 69 > OR = 60 mL/min/1. 73m2 [facility] Comment: The eGFR is based on the CKD-EPI 2020 equation. To calculate the new eGFR from a previous Creatinine or Cystatin C result, go to https://www.kidney.org/professionals/ kdoqi/gfr%5Fcalculator BUN/creat ratio NOT APPLICABLE 6 - 22 (calc) [facility] Sodium 144 135 - 146 mmol/L [facility] Potassium, pl 4.0 3.5 - 5.3 mmol/L [facility] Chloride 106 98 - 110 mmol/L [facility] CO2 26 20 - 32 mmol/L [facility] Calcium 10.0 8.6 - 10.4 mg/dL [facility] Protein, sr 7.0 6.1 - 8.1 g/dL [facility] Albumin 4.2 3.6 - 5.1 g/dL [facility] GLOBULIN 2.8 1.9 - 3.7 g/dL (calc) [facility] Alb/glob ratio 1.5 1.0 - 2.5 (calc) [facility] Bilirubin, total 0.3 0.2 - 1.2 mg/dL [facility] Alk phos 81 37 - 153 U/L [facility] AST 12 10 - 35 U/L [facility] ALT (SGPT) 10 6 - 29 U/L [facility] Blood specimen (specimen) 10/11/2021 8:43 AM CDT 10/11/2021 8:47 AM CDT Narrative [facility] - 10/12/2021 4:22 AM CDT FASTING:YES PATIENT UNABLE TO VOID; ADVISED TO RETURN FOR COLLECTION. FASTING: YES us Terri HODGES LAB BLOOD ORDERABLES Final Result [facility] [id number] [facility] [id number] * COLONOSCOPY (05/03/2021) Scribed Colonoscopy Normal Narrative Terri Lopez PA - 05/03/2021 Dr. Silverio. Normal colonoscopy -- repeat 10 years. us Historical Provider MD HEALTH MAINTENANCE Final Result from Last 3 Months or Most Recently Relevant to Health Maintenance Insurance [employer] ACCESS Care Teams Oracle Programmer Analyst Relationship Specialty Start Date End Date Terri Lopez PA [address] [place], [place] [phone] PCP - General Internal Medicine 07/15/20 Deepali Vega DO [address] [facility] [address] [place] [address] Referring Physician Internal Medicine 08/01/22
== END 2024-05-01 20:50 | disposition left against medical advice (07) ==
PROVIDERS: PCP Physician Assistant
DX: M25.551 Pain in right hip (principal)
CPT/HCPCS: 99199

== ENCOUNTER 2024-11-25 19:24 | Emergency (ER) | payer BC, SELFPAY ==
--- NOTE | 2024-11-25 19:25 | ED.URI ---
HPI - URI/Sore Throat General Chief Complaint: Upper Respiratory Infection Stated Complaint: Sore Throat Time Seen by Provider: 11/25/24 19:25 Source: patient Mode of arrival: ambulatory Limitations: no limitations History of Present Illness HPI Narrative: Patient is a 16-year-old female who presents with sore throat, productive cough and wheezing for 3 days. Denies any fever, chills, nausea, vomiting, diarrhea. Does have history of COPD. Has been taking [id number] medication with no relief Related Data Home Medications ?Medication ?Instructions ?Recorded ?Confirmed ?Last Taken ?Type albuterol sulfate 90 mcg/actuation 2 inh inhalation DIRECTED 05/03/19 01/28/23 Unknown History aerosol inhaler (Ventolin HFA) atorvastatin 10 mg tablet 10 mg PO DAILY 05/03/19 01/28/23 Unknown History linagliptin 5 mg tablet (Tradjenta) 5 mg PO DAILY 05/03/19 01/28/23 Unknown History metformin 500 mg tablet,extended 500 mg PO DIRECTED 05/03/19 01/28/23 Unknown History release 24 hr olmesartan 40 1 tablet PO DAILY 05/03/19 01/28/23 Unknown History mg-hydrochlorothiazide 12.5 mg tablet dulaglutide 1.5 mg/0.5 mL 1.5 mg subcut DIRECTED 03/19/22 01/28/23 Unknown History subcutaneous pen injector (Trulicity) Allergies Allergy/AdvReac Type Severity Reaction Status Date / Time prednisone AdvReac Other Verified 11/25/24 19:45 Review of Systems Review of Systems: All systems reviewed & are unremarkable except as noted in HPI and below Constitutional: Constitutional: Denies chills, Denies fatigue, Denies fever(s), Denies headache(s), Denies malaise and Denies weakness Eyes: Eyes: Denies blurry vision, Denies itchy eyes and Denies loss of vision ENT: Denies otalgia, Denies headache(s), Denies nasal congestion, Denies sinus pain and Reports sore throat Cardiovascular: Cardiovascular: Denies chest pain, Denies irregular heart rhythm and Denies dyspnea Respiratory: Respiratory: Reports cough, Denies dyspnea and Reports wheezing Gastrointestinal: Gastrointestinal: Denies abdominal pain, Denies diarrhea, Denies nausea and Denies vomiting Musculoskeletal: Musculoskeletal: Denies back pain, Denies myalgias and Denies arthralgias Integumentary/Breasts: Skin/Breast: Denies pruritus and Denies rash Neurologic: Denies headache(s), Denies loss of vision and Denies weakness Psychiatric: Psychiatric: Reports no additional psychiatric complaints Endocrine: Endocrine: Denies fatigue Allergic/Immunologic: Allergic/Immunologic: Denies itchy eyes PMFSH Past Medical History Medical History Diabetes COPD (chronic obstructive pulmonary disease) Comments At time of signature, agree with nursing past medical, surgical, social and family history. There is no relevant family history pertinent to the presenting complaint. Exam Const: General: cooperative, healthy appearing, comfortable, no acute distress and well nourished Nutritional Appearance: well nourished Orientation/consciousness: patient oriented x3 Limitations: no limitations HENMT: Head: normal to inspection, normocephalic and atraumatic Ears: hearing grossly normal bilaterally, external ears normal, TM's normal bilaterally, EAC's normal and no periauricular adenopathy Face/Nose/Sinus: Normal external nose present, Abnormal mucous membranes and turbinates present erythematous bilateral and diffuse, normal facial exam, sinuses nontender and face symmetric Face and sinus: normal facial exam, sinuses nontender and face symmetric Mouth: Yes Normal oral and palatal mucosa present, Yes lip normal, Yes tongue normal, Yes Normal salivary glands and ducts present, Yes oropharynx normal and Yes moist mucous membranes Teeth and gingiva: dentition normal Throat: posterior oropharynx normal, tonsils normal and uvula midline Eyes: General: appearance normal, both eyes and all related structures Alignment and Position: alignment normal and position normal Periorbital: periorbital findings normal Eyelids: eyelids normal Pupils: Equal, round and reactive pupils present Neck: Neck: normal visual inspection, full ROM, no lymphadenopathy and supple Chest: Chest palpation & inspection: normal inspection of the chest and normal palpation of entire chest wall Resp: Effort & Inspection: normal respiratory effort and able to speak in complete sentences Auscultation: clear to auscultation bilaterally, no crackles, no rales, no rhonchi and no wheezes Cardio: Rate: regular rate Rhythm: regular rhythm Heart sounds: S1 normal heart sound present and S2 normal heart sound present GI: Inspection: normal to inspection Skin: General skin exam: normal color and no rashes or lesions noted Neuro: General: patient oriented x3 and moves all extremities Cranial nerves: Yes Equal, round and reactive pupils present Speech: normal speech Gait exam (Neuro): Normal gait present Extrem: General: normal to inspection, full ROM and no edema Psych: Appearance: grossly normal and well kempt Mental Status: mental status grossly normal Speech and movement: Normal speech and movement present Affect: normal affect Attitude: cooperative Thought process: Normal thought process present Course Course Emergency Course: Discharge instructions reviewed with patient, as well as provided in writing per nursing staff. The instructions also include specific and strict return/GO TO THE ER as well as f/u information. All questions have been answered, and the patient deny any further questions with discharge and discharge plan. Portions of this record may have been created with voice recognition software Level of Care: Express Care Visit Vital Signs Vital signs: Vital Signs Temperature 37.1 C 11/25/24 19:39 Pulse Rate 89 11/25/24 19:39 Respiratory Rate 16 11/25/24 19:39 Blood Pressure 124/66 11/25/24 19:39 Pulse Oximetry 100 11/25/24 19:39 Oxygen Delivery Room Air 11/25/24 19:39 Temperature 37.1 C 11/25/24 19:39 Pulse Rate 89 11/25/24 19:39 Respiratory Rate 16 11/25/24 19:39 Blood Pressure 124/66 11/25/24 19:39 Pulse Oximetry 100 11/25/24 19:39 Oxygen Delivery Room Air 11/25/24 19:39 Reviewed MDM - URI/Sore Throat MDM Narrative Medical decision making narrative: Pt well hydrated appearing, in no respiratory distress, hemodynamically stable. Recommend supportive care. The patient is stable at time of discharge the clinical impression was discussed and the patient was given the opportunity to ask questions, which were addressed as completely as possible given the information available at present. Anticipatory guidance and return to care precautions were discussed and the importance of primary care follow-up was stressed and encouraged. The patient voiced understanding of the plan, indications to return, and the need for follow-up. Exam findings show no acute concerns or changes Patient is appropriate for outpatient treatment and follow-up. Differential diagnosis considered: [place] virus, strep pharyngitis, allergic rhinitis, upper respiratory tract infection, sinusitis, rhinosinusitis, nasopharyngitis. viral pharyngitis, otitis media, otitis externa, otitis effusion, foreign body, cerumen impaction, viral syndrome, and influenza.? Medical Records Attestation: I reviewed the patient's medical records. Lab Data Attestation: I reviewed the patient's lab results. Labs: Lab Results 11/25/24 Range/Units 19:36 POC Influenza A Ag Positive (Negative) POC Influenza B Ag Negative (Negative) POC SARS CoV-2 Ag Negative (Negative) POC Grp A Strep Screen Negative (Negative) Discharge Plan Discharge Clinical Impression: Influenza Patient Disposition: Home Condition: Stable Instructions: Influenza (ED) Additional Instructions: Were positive for influenza A. Your Covid and strep are negative Your symptoms are due to a viral illness, which is not treated with antibiotics. Viral symptoms can be present for up to a few weeks. -For fever/pain, you may take: Tylenol 650-1000mg by mouth every 4-6 hours. Do not exceed 4000mg in 24 hours. Advil (Ibuprofen) 600 mg by mouth every 6 hours. Do not exceed 2400mg in 24 hours. 8 AM: Tylenol 11 AM: Ibuprofen 2 PM: Tylenol 5 PM: Ibuprofen 8 PM: Tylenol 11 PM: Ibuprofen 2 AM: Tylenol 5 AM: Ibuprofen -Antihistamine medication such as Benadryl/Zyrtec at night and Claritin/Rylee during the day can help improve symptoms. -Use Flonase twice a day for 5 days then daily to help reduce the inflammation and dry up your sinuses. -You can also use Sudafed behind the pharmacy counter(12 or 24 hour). Be sure to drink plenty of water with these medications at least 8 ounces with every dose and it is important to drink 8 to 10 glasses of water per day. Water is a natural decongestant -Eat and drink things that are easy to swallow, like tea or soup, or popsicles. -Oral rinses such as: Salt water gargles and/or may use topical anesthetic (eg. Chloraseptic spray) or lozenges to relieve dryness or throat pain). -Frequent hand washing or hand pediatrician managing partner is one of the best ways to prevent spread of infection. -Using a vaporizer or humidifier at night will also help thin secretions and help with coughing up phlegm. -Follow up with primary care provider in 3-5 days if condition is not improving - For new or worsening symptoms go directly to the nearest ER Patient Language: Eritre[place] Prescriptions: New benzonatate 100 mg capsule 100 mg PO BID PRN (Reason: cough) Qty: 14 0RF No Action Trulicity 1.5 mg/0.5 mL pen injector 1.5 mg SUBCUT DIRECTED benzonatate 200 mg capsule 200 mg PO TID PRN (Reason: cough) Qty: 20 0RF atorvastatin 10 mg tablet 10 mg PO DAILY albuterol sulfate [Ventolin HFA] 90 mcg/actuation HFA aerosol inhaler 2 inh INHALATION DIRECTED metformin 500 mg tablet extended release 24 hr 500 mg PO DIRECTED olmesartan-hydrochlorothiazide 40-12.5 mg tablet 1 tablet PO DAILY Tradjenta 5 mg tablet 5 mg PO DAILY Follow-up/Referrals: John,CARROLL Murray [Primary Care Provider, Unknown] - 3 Days Stand Alone Forms: Work/School Release IP Time of Disposition: 20:00
[2024-11-25 19:39] VITALS: BP 124/66; PULSE 89; RESP 16; TEMP 37.1; O2SAT 100
[2024-11-25 19:46] LABS: EDSTREPNEGPOS1 Negative (Negative)
[2024-11-25 20:03] LABS: EDCOVIDSCREEN Negative (Negative); EDINFLUASCREEN Positive (Negative); EDINFLUBSCREEN Negative (Negative)
== END 2024-11-25 20:02 | disposition home or self-care (01) ==
PROVIDERS: Emergency Provider Nurse Practitioner Family; PCP Physician Assistant
DX: J10.1 Influenza due to other identified influenza virus with other respiratory manifestations (principal); Z20.822 Contact with and (suspected) exposure to COVID-19; E11.9 Type 2 diabetes mellitus without complications; Z79.84 Long term (current) use of oral hypoglycemic drugs; Z79.85 Long-term (current) use of injectable non-insulin antidiabetic drugs; J44.9 Chronic obstructive pulmonary disease, unspecified
CPT/HCPCS: 87081; 87426; 87804; 87880; 99213; G0463

== ENCOUNTER 2024-12-26 19:26 | Emergency (ER) | payer BC, SELFPAY ==
[2024-12-26 19:34] VITALS: BP 118/64; PULSE 85; RESP 20; TEMP 36.2; O2SAT 100
--- NOTE | 2024-12-27 08:11 | ED.SOB ---
HPI - SOB/Dyspnea General Chief Complaint: Shortness of Breath/Dyspnea Stated Complaint: SOB Time Seen by Provider: 12/26/24 19:30 Source: patient and RN notes reviewed Mode of arrival: ambulatory Limitations: no limitations History of Present Illness HPI Narrative: 69-year-old female presents Express Care complaining of shortness of breath started today. Patient has a history of COPD states she feels more shortness breath normal, she reports with exertion. Patient says she lost her inhaler has not been able to use it. Patient denies any worsening cough, congestion, upper respiratory symptoms, fevers, body aches, chills, nausea, vomiting, chest pain, difficulty breathing, or any other symptoms. Related Data Home Medications ?Medication ?Instructions ?Recorded ?Confirmed ?Last Taken ?Type albuterol sulfate 90 mcg/actuation 2 inh inhalation DIRECTED 05/03/19 01/28/23 Unknown History aerosol inhaler (Ventolin HFA) atorvastatin 10 mg tablet 10 mg PO DAILY 05/03/19 01/28/23 Unknown History metformin 500 mg tablet,extended 500 mg PO DIRECTED 05/03/19 01/28/23 Unknown History release 24 hr olmesartan 40 1 tablet PO DAILY 05/03/19 01/28/23 Unknown History mg-hydrochlorothiazide 12.5 mg tablet dulaglutide 1.5 mg/0.5 mL 1.5 mg subcut DIRECTED 03/19/22 01/28/23 Unknown History subcutaneous pen injector (Trulicity) cyanocobalamin (vitamin B-12) mcg 12/26/24 Unknown History 1,000 mcg tablet ergocalciferol (vitamin D2) 1,250 12/26/24 Unknown History mcg (50,000 unit) capsule Allergies Allergy/AdvReac Type Severity Reaction Status Date / Time prednisone AdvReac Other Verified 12/26/24 19:45 Review of Systems Review of Systems: CONSTITUTIONAL: Denies fever, body aches, chills, or sweats. EYES: Denies visual changes, redness, or discharge. ENT: Denies rhinorrhea, congestion, sore throat, or otalgia. CARDIOVASCULAR: Denies chest pain, palpitations, dizziness, lightheadedness or edema. RESPIRATORY: Denies cough, difficulty breathing, wheezing, or dyspnea at rest. Positive for dyspnea with exertion. GASTROINTESTINAL: Denies abdominal pain, nausea, vomiting, or diarrhea. GENITOURINARY: Denies dysuria or hematuria. SKIN: Denies rash or itching. MUSCULOSKELETAL: Denies back pain, joint pain, or myalgia. NEUROLOGIC: Denies headache, numbness, or weakness. PSYCHIATRIC: Denies anxiety or depression. All other systems reviewed are negative, except as documented in HPI. [facility] Past Medical History Medical History Diabetes COPD (chronic obstructive pulmonary disease) Comments At the time of my signature, I reviewed and agree with the nursing past medical, surgical, social, and family history. There is no relevant family history pertinent to the patient complaint. Exam Narrative: GENERAL: This is a well-nourished, well-developed adult, in no apparent distress. They are non ill-appearing, nontoxic appearing. HEAD: normocephalic, atraumatic. EYES: Sclera clear/white. Conjunctiva normal. Vision is grossly intact. Extraocular movements intact EARS: External ears normal, auditory canals clear and without drainage, TMs normal without perforation. Hearing grossly intact. NOSE: External nose normal with no obvious nasal discharge, nasal turbinates without redness, no rhinorrhea. THROAT: Mucous membranes moist, posterior pharynx clear, without erythema or swelling. Uvula midline. NECK: Neck supple, non-tender without lymphadenopathy, masses or thyromegaly. CARDIOVASCULAR: Regular rate and rhythm without murmurs, gallops, or rubs. RESPIRATORY: Diminished bilateral lower lobes. Otherwise clear to auscultation. Breath sounds equal bilaterally. No wheezes, rales, or rhonchi. SKIN: warm, Dry, intact with no suspicious lesions or rash, good texture and turgor. NEURO: awake, alert, and oriented to person, place and time. There were no obvious focal neurologic abnormalities. EXTREMITIES: No joint tenderness, effusion, or edema noted. BACK: Nontender without deformity. No CVA tenderness. Course Course Emergency Course: Portions of this record may have been created with voice recognition software Level of Care: Express Care Visit Vital Signs Vital signs: Vital Signs Temperature 97.2 F L 12/26/24 19:34 Pulse Rate 85 12/26/24 19:34 Respiratory Rate 20 12/26/24 19:34 Blood Pressure 118/64 12/26/24 19:34 Pulse Oximetry 100 12/26/24 19:34 Oxygen Delivery Room Air 12/26/24 19:34 Temperature 97.2 F L 12/26/24 19:34 Pulse Rate 85 12/26/24 19:34 Respiratory Rate 20 12/26/24 19:34 Blood Pressure 118/64 12/26/24 19:34 Pulse Oximetry 100 12/26/24 19:34 Oxygen Delivery Room Air 12/26/24 19:34 Reviewed MDM - SOB/Dyspnea MDM Narrative Medical decision making narrative: Patient vital signs reassuring, normal oxygen saturation, patient nontoxic appearing, no apparent distress. Lung sounds diminished bilateral lower lobes otherwise no adventitious lung sounds auscultated. Symptoms likely related to her COPD and that she is unable to use her inhaler since she lost it. Also new prescription for inhaler. Offered her a course of steroids for her symptoms and she would like to wait because they cause her blood sugar to spike very high, she is a diabetic. Discussed physical exam findings. Advised supportive measures and signs/symptoms to go to the ER. Pt is appropriate for outpt treatment and f/u. Differential Diagnosis Differential diagnosis: Likely acute exacerbation of chronic obstructive airways disease, congestive heart failure, community acquired pneumonia and asthma with exacerbation Critical Care Time Critical Care Time Critical Care Time: No Discharge Plan Discharge Clinical Impression: COPD exacerbation Patient Disposition: Home Condition: Stable Instructions: Antibiotic Form, COPD (Chronic Obstructive Pulmonary Disease) (ED) Additional Instructions: I have refilled your inhaler use as directed as needed for shortness of breath or wheezing. Use your nebulizer as directed at home. Drink plenty of fluids. Follow-up with PCP in 3-5 days. Go to the ER if he develops any fevers, body body aches, chills, difficulty breathing, productive cough, weakness, unable to talk in full sentences, chest pains or any serious concerns. Patient Language: Kenyan Prescriptions: New albuterol sulfate [Ventolin HFA] 90 mcg/actuation HFA aerosol inhaler 2 puff inhalation QID PRN (Reason: shortness of breath or wheezing) Qty: 8.5 0RF No Action Trulicity 1.5 mg/0.5 mL pen injector 1.5 mg SUBCUT DIRECTED cyanocobalamin (vitamin B-12) 1,000 mcg tablet ergocalciferol (vitamin D2) 1,250 mcg (50,000 unit) capsule atorvastatin 10 mg tablet 10 mg PO DAILY albuterol sulfate [Ventolin HFA] 90 mcg/actuation HFA aerosol inhaler 2 inh INHALATION DIRECTED metformin 500 mg tablet extended release 24 hr 500 mg PO DIRECTED olmesartan-hydrochlorothiazide 40-12.5 mg tablet 1 tablet PO DAILY Follow-up/Referrals: Jonh,CARROLL Murray [Primary Care Provider, Unknown] Time of Disposition: 19:49
== END 2024-12-26 19:56 | disposition home or self-care (01) ==
PROVIDERS: PCP Physician Assistant
DX: J44.1 Chronic obstructive pulmonary disease with (acute) exacerbation (principal); E11.9 Type 2 diabetes mellitus without complications; Z79.84 Long term (current) use of oral hypoglycemic drugs; Z79.85 Long-term (current) use of injectable non-insulin antidiabetic drugs
CPT/HCPCS: 99213; G0463